=== PATIENT | male | born 1985 | race Caucasian/White ===

== ENCOUNTER 2016-12-15 22:46 | Inpatient (IN) | payer BC, OTHER ==
[~2016-12-15] VITALS: Ht 182.9 cm; Wt 110.9 kg
[2016-12-15 22:40] VITALS: O2SAT 99
[~2016-12-15 22:46] MED LIST: LACTATED RINGER'S 1000 ML INJ 1,000 ML IV ONE; PROPOFOL 200 MG/20 ML AMP IV ONE; Z.0.NO CURRENT MEDS
[2016-12-15] MEDS ORDERED: DIPHTH/TETANUS/ACEL PERTUSSIS (BOOSTER) 0.5 ML VIAL/PFS IM ONE (22:51)
[2016-12-15] MEDS ORDERED: ceFAZolin 2 GM PREMIX 50 ML ONE (22:51)
[2016-12-15 23:02] VITALS: O2SAT 99
[2016-12-15] MEDS ORDERED: IOHEXOL 350 MG/ML 10 ML VIAL (for RAD DIAG) IV ONE (23:10)
[2016-12-15] MEDS ORDERED: Post-op Orders (for Pharmacy) MISC XX ONE (23:15)
[2016-12-15] MEDS ORDERED: SODIUM CHLORIDE 0.9% FLUSH 10 ML FLUSH IV FLUSH PRN (23:15)
[2016-12-15] MEDS ORDERED: 3% SALINE INJ 500 ML IV ONE ×2 (23:15)
[2016-12-15] MEDS ORDERED: NALOXONE HCL 0.4 MG/ML AMP IV PRN (23:15)
[2016-12-15] MEDS ORDERED: PROPOFOL 1000 MG/100 ML INJ 100 ML IV SCH (23:15)
[2016-12-15] MEDS ORDERED: ONDANSETRON HCL 4 MG/2 ML VIAL IV PRN (23:15)
[2016-12-15 23:18] LABS: AUTOMATED NEUTROPHIL # 6.7 TH/MM3 (1.8-7.7); BASOPHIL # 0.1 TH/MM3 (0-0.2); BASOPHIL % 0.6 % (0.0-2.0); EOSINOPHIL # 0.2 TH/MM3 (0-0.4); EOSINOPHIL % 1.6 % (0.0-4.0); HEMATOCRIT 40.4 % (39.0-51.0); LYMPH % 45.7 % (9.0-44.0); LYMPHOCYTE # 6.5 TH/MM3 (1.0-4.8); MEAN CELL VOLUME 88.2 FL (80.0-100.0); MEAN CORPUSCULAR HEMOGLOBIN 28.6 PG (27.0-34.0); MEAN CORPUSCULAR HGB CONC 32.5 % (32.0-36.0); MONO % 5.2 % (0.0-8.0); NEUT % 46.9 % (16.0-70.0); PLATELET COUNT 309 TH/MM3 (150-450); RED BLOOD COUNT 4.58 MIL/MM3 (4.50-5.90); RED CELL DISTRIBUTION WIDTH 12.7 % (11.6-17.2); WHITE BLOOD COUNT 14.2 TH/MM3 (4.0-11.0)
[2016-12-15 23:22] LABS: HEMO FLAGS AUTO DIFF
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
[2016-12-15] MEDS ORDERED: SODIUM CHLORIDE 23.4% INJ 240 MEQ in SYRINGE/BAG 1 EA IV ONE (23:30)
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
[2016-12-15 23:33] LABS: APTT (PATIENT) 25.4 SEC (24.3-30.1); PROTHROMBIN TIME - PATIENT 10.9 SEC (9.8-11.6)
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
[2016-12-15] MEDS ORDERED: ETOMIDATE 20 MG/10 ML VIAL ONE (23:50)
[2016-12-16] VITALS (14 sets, daily range): BP systolic 126–161; BP diastolic 62–69; PULSE 98–124; RESP 22; TEMP 99.5–101.8; O2SAT 99–100
[2016-12-16] MEDS ORDERED: GELFOAM SIZE 100 OTHER ONE (00:02)
[2016-12-16] MEDS ORDERED: GENTAMICIN SULFATE 80 MG/2 ML VIAL IRRIGATION ONE (00:02)
[2016-12-16] MEDS ORDERED: LIDOCAINE 1%/EPINEPHrine 1:100,000 SOLN 30 ML VIAL INFIL ONE (00:02)
[2016-12-16] MEDS ORDERED: THROMBIN (TOPICAL) 5,000 UNIT VIAL ONE (00:02)
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
[2016-12-16 00:10] LABS: CORRECTED NUCLEATED RBC 1 /100 WBC (0-0); EOSINOPHILS 4 % (0-4); NEUTROPHIL # MANUAL DIFF 5.7 TH/MM3 (1.8-7.7); POLYS (SEG NEUTROPHILS) 40 % (16-70); WBC DIFF SAMPLE 100
[2016-12-16 00:11] LABS: SCAN/DIFF FINAL DIFF MANUAL
[2016-12-16 00:12] LABS: PLATELET ESTIMATE SMEAR NORMAL (NORMAL); PLATELET MORPHOLOGY NORMAL (NORMAL)
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
--- NOTE | 2016-12-16 01:54 | PD.OP ---
Operative Report Date of Surgery: December 16, 2016 Preoperative Diagnosis: (1) Traumatic brain injury (2) Acute subdural hematoma Traumatic brain injury Acute left hemisphere subdural hematoma Postoperative Diagnosis: (1) Traumatic brain injury (2) Acute subdural hematoma Traumatic brain injury Acute left hemisphere subdural hematoma Procedure: 1. Left frontotemporoparietal decompressive craniotomy, evacuation of acute subdural hematoma 2. Left frontal ventriculostomy catheter placement 3. Left frontal intracranial pressure monitor placement Anesthesia: Gen. endotracheal Surgeon: Rodney Castaneda Bicycle Rental Clerk(s): Nida Whitten Operation and Findings: Findings: Large acute left hemisphere subdural hematoma. Moderate cerebral edema Procedure in detail: The patient was brought into the operating room already intubated and general endotracheal anesthesia induced without difficulty. The Mane catheter, and sequential compression devices were in place. The lines were established per anesthesia. The patient was placed in semilateral position on the 3080 table with the head on the horseshoe headrest. All extremities were appropriately padded Appropriate timeout procedure was performed with all personnel present and in agreement The left side of the head was shaved with the clippers and sterilely prepped and draped 1% Xylocaine was used for local infiltration over the incision site which was made over the left frontotemporoparietal area in a curvilinear fashion and carried sharply down to the cranium through the temporalis muscle and fascia. The scalp and temporalis muscle flap were elevated in a single layer with the periosteal elevator and retracted over a laparotomy sponge with the large scalp hooks. The senior government program analyst was used to place a single bur hole in the posterior left frontoparietal region and the craniotome was used to incise the bone flap. The dura was moderately tense upon removal of the bone flap. The dura was opened in a cruciate fashion and the edges retracted with 4-0 Nurolon suture. The large underlying subdural hematoma was evacuated with gentle suction and irrigation until clear The bipolar forceps were used to control any bleeding at the operative site. There was still evidence of surrounding edema and the brain was bulging moderately beyond the edge dura at the the craniotomy site. It was elected to leave the bone flap out and the dura opened to allow for cerebral edema. In order to further decompress the brain, a left frontal ventriculostomy catheter was placed. The catheter was placed into the ventricle in a single pass using normal anatomic landmarks, starting approximately 1 cm in front of the coronal suture. The catheter was tunneled to the right frontal region and secured to the skin with nylon suture. The Oleg ICP monitor lead was then zeroed and placed through a small incision near the midline frontal region and then into the right frontal parenchyma. The lead was secured to the skin with nylon suture. A 7 mm flat fluted drain was left in place in the subdural space The drain was brought out through an incision in the posterior parietal region and secured to the skin with nylon suture The closure was performed with 2-0 Vicryl for the temporalis muscle fascia and galeal closure and octavia for the skin closure. A dressing of sterile Telfa, 4 x 4's, and a loose head stockinette was applied. The patient was taken to recovery room in stable condition All counts were correct at the end of the case. Estimated blood loss was 600 cc No specimen was sent to pathology Rodney Castaneda MD December 16, 2016 01:54
[2016-12-16] MEDS: NS + KCL 20 MEQ INJ 1,000 ML IV SCH ×3 (02:15→20:45)
[2016-12-16 02:36] LABS: BLOOD GAS BASE EXCESS -6.8 mmol/L (-2-2); BLOOD GAS CARBOXYHEMOGLOBIN 1.7 % (0-4); BLOOD GAS HCO3 17 mmol/L (22-26); BLOOD GAS METHEMOGLOBIN 1.3 % (0-2); BLOOD GAS O2 HGB SATURATION 97 % (90-100); BLOOD GAS PCO2 28 mmHg (38-42); BLOOD GAS PO2 285 mmHg (61-120); BLOOD GAS TOTAL HGB 9.8 G/DL (12.0-16.0); CRITICAL VALUE NO; FIO2 100 %; OXYGEN DEVICE VENTILATOR; TEMP CORR TO 98.6; VENT SETTINGS PER ANESTHESIA
[2016-12-16 02:37] LABS: DRAW SITE ART LINE; STAT YES
[2016-12-16] MEDS ORDERED: ceFAZolin INJ 1,000 MG VIAL IV ONE (02:40)
[2016-12-16 02:42] LABS: AUTOMATED NEUTROPHIL # 10.9 TH/MM3 (1.8-7.7); BASOPHIL % 0.2 % (0.0-2.0); EOSINOPHIL % 0.2 % (0.0-4.0); HEMATOCRIT 27.7 % (39.0-51.0); HEMO FLAGS DIFF FINAL; LYMPH % 20.4 % (9.0-44.0); LYMPHOCYTE # 3.2 TH/MM3 (1.0-4.8); MEAN CELL VOLUME 87.8 FL (80.0-100.0); MEAN CORPUSCULAR HEMOGLOBIN 29.8 PG (27.0-34.0); MONO % 9.2 % (0.0-8.0); PLATELET COUNT 228 TH/MM3 (150-450); RED BLOOD COUNT 3.16 MIL/MM3 (4.50-5.90); WHITE BLOOD COUNT 15.6 TH/MM3 (4.0-11.0)
[2016-12-16 02:59] LABS: INTERNATIONAL NORMALIZED RATIO 1.1 RATIO; PROTHROMBIN TIME - PATIENT 12.7 SEC (9.8-11.6)
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
[2016-12-16] MEDS ORDERED: NOREPINEPHRINE-DEXTROSE DRIP 250 ML IV ONE (06:10)
[2016-12-16] MEDS ORDERED: fentaNYL CITRATE 250 MCG/5 ML AMP ONE (06:17)
--- NOTE | 2016-12-16 06:27 | RADRPT ---
EXAM DATE/TIME: 12/16/2016 04:02 [facility] COMPARISON: No previous studies available for comparison. INDICATIONS : ORIF right forearm. MEDICAL HISTORY : None. SURGICAL HISTORY : None. ENCOUNTER: Subsequent ACUITY: 1 day PAIN SCORE: Non-responsive. LOCATION: Right forearm FINDINGS: Postoperative plate and screw fixation radius and ulna. Near-anatomic alignment. No complications jayy ntified. CONCLUSION: 1. Postoperative plate and screw fixation of the left radius and ulna. Jose Eduardo Tong MD on December 16, 2016 at 6:25 Board Certified Radiologist. This report was verified electronically.
--- NOTE | 2016-12-16 06:30 | RADRPT ---
EXAM DATE/TIME: 12/16/2016 04:02 [facility] COMPARISON: No previous studies available for comparison. INDICATIONS : Right hand pinning. MEDICAL HISTORY : None. SURGICAL HISTORY : None. ENCOUNTER: Initial ACUITY: 1 day PAIN SCORE: Non-responsive. LOCATION: Right hand FINDINGS: Two view examination of the right hand demonstrates wire fixation across fractures of the fourth and fifth metacarpals. No complications identified. CONCLUSION: 1. Wire fixation of fractures of the fourth and fifth metacarpals. Jose Eduardo Tong MD on December 16, 2016 at 6:25 Board Certified Radiologist. This report was verified electronically.
[2016-12-16 06:41] LABS: AUTOMATED NEUTROPHIL # 10.6 TH/MM3 (1.8-7.7); BASOPHIL % 0.1 % (0.0-2.0); HEMATOCRIT 24.5 % (39.0-51.0); HEMO FLAGS DIFF FINAL; LYMPH % 6.4 % (9.0-44.0); LYMPHOCYTE # 0.8 TH/MM3 (1.0-4.8); MEAN CELL VOLUME 88.1 FL (80.0-100.0); MEAN CORPUSCULAR HEMOGLOBIN 29.3 PG (27.0-34.0); MEAN CORPUSCULAR HGB CONC 33.2 % (32.0-36.0); MONO % 8.5 % (0.0-8.0); PLATELET COUNT 203 TH/MM3 (150-450); RED BLOOD COUNT 2.78 MIL/MM3 (4.50-5.90); RED CELL DISTRIBUTION WIDTH 13.2 % (11.6-17.2); WHITE BLOOD COUNT 12.5 TH/MM3 (4.0-11.0)
[2016-12-16] MEDS ORDERED: EPINEPHrine HCL (1:10,000) 1 MG/10 ML SYRINGE ONE (06:41)
[2016-12-16 06:55] LABS: BICARBONATE 23.6 MEQ/L (21.0-32.0); POTASSIUM 4.1 MEQ/L (3.5-5.1)
[2016-12-16] MEDS ORDERED: SODIUM CHLORIDE 23.4% INJ 240 MEQ in SYRINGE/BAG 1 EA IV ONE (07:00)
[2016-12-16 07:07] LABS: BLOOD GAS BASE EXCESS -8.8 mmol/L (-2-2); BLOOD GAS CARBOXYHEMOGLOBIN 0.7 % (0-4); BLOOD GAS HCO3 16 mmol/L (22-26); BLOOD GAS METHEMOGLOBIN 1.2 % (0-2); BLOOD GAS O2 HGB SATURATION 98 % (90-100); BLOOD GAS OXYGEN CONTENT 9.6 Vol % (12.0-20.0); BLOOD GAS PCO2 32 mmHg (38-42); BLOOD GAS PO2 420 mmHg (61-120); BLOOD GAS TOTAL HGB 6.1 G/DL (12.0-16.0); TEMP CORR TO 98.6
[2016-12-16 07:08] LABS: CRITICAL VALUE YES; OXYGEN DEVICE VENT
[2016-12-16 07:09] LABS: DRAW SITE ALINE; FIO2 100 %; STAT NO; ULNAR PULSE PRESENT; VENT SETTINGS SEE COMMENTS
[2016-12-16] MEDS ORDERED: NOREPINEPHRINE INJ 4 MG in SODIUM CHLOR 0.9% 250 ML INJ 250 ML IV SCH (07:30)
[2016-12-16] MEDS ORDERED: NOREPINEPHRINE 4 MG/4 ML AMP ONE (07:45)
[2016-12-16 07:49] LABS: INTERNATIONAL NORMALIZED RATIO 1.1 RATIO; PROTHROMBIN TIME - PATIENT 12.6 SEC (9.8-11.6)
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
--- NOTE | 2016-12-16 07:55 | PD.PROCEDR ---
Procedure Note Procedure DX: Traumatic Brain Injury OP: Insertion Central Venous Line (39048) Procedure: Left chest prepped and draped. Left subclavian vein cannulated and wire easily advanced. Catheter passed over wire to 18 cm. Lumens aspirated and flushed. Dressing applied. CXR ordered, will review. Leonardo Hebert MD December 16, 2016 07:55
[2016-12-16] MEDS ORDERED: PHENYLEPHRINE INJ 160 MG in SODIUM CHLORID 0.9% 500 ML INJ 484 ML IV SCH (08:00)
[2016-12-16] MEDS ORDERED: SODIUM BICARBONATE 8.4% INJ 50 MEQ/50 ML SYR IV PUSH ONE (08:00)
[2016-12-16] MEDS ORDERED: TERBUTALINE INJ 1 MG/ML AMP SQ PRN (08:00)
[2016-12-16] MEDS ORDERED: SODIUM BICARBONATE 8.4% INJ 50 ML ONE (08:20)
--- NOTE | 2016-12-16 08:22 | RADRPT ---
EXAM DATE/TIME: 12/16/2016 07:52 [facility] COMPARISON: CHEST SINGLE AP, December 15, 2016, 22:39. INDICATIONS : Evaluate intubation and central line placement MEDICAL HISTORY : None. SURGICAL HISTORY : None. ENCOUNTER: Subsequent ACUITY: 2 days PAIN SCORE: Non-responsive. LOCATION: Bilateral chest FINDINGS: 2 AP views of the chest demonstrate a normal size cardiac silhouette. Endotracheal tube is present wi th distal tip at the clavicular head level measuring approximately 5.1 cm from the lauro. Left subcl ilene central line has been placed with distal tip in the SVC. No pneumothorax is visualized. No airs pace consolidation or pleural effusion is visualized. Nasogastric tube is looped in the stomach. CONCLUSION: 1. Left subclavian central line distal tip in the SVC. No pneumothorax is visualized. 2. Endotracheal tube tip measures 5.1 cm from the lauro and nasogastric tube is looped in the stomac h. Иван Medrano MD on December 16, 2016 at 8:19 Board Certified Radiologist. This report was verified electronically.
[2016-12-16] MEDS: SODIUM CHLORIDE 23.4% INJ 240 MEQ in SYRINGE/BAG 1 EA IV PRN (08:25)
[2016-12-16] MEDS: 3% SALINE INJ 500 ML IV SCH ×2 (08:26→20:45)
[2016-12-16] MEDS: SODIUM CHLORIDE 0.9% FLUSH 10 ML FLUSH IV FLUSH SCH ×2 (09:00→20:29)
[2016-12-16] MEDS: NOREPINEPHRINE INJ 16 MG in SODIUM CHLOR 0.9% 250 ML INJ 234 ML IV SCH ×2 (09:58→18:39)
[2016-12-16] MEDS: CHLORHEXIDINE 0.12% (ORAL KIT) 15 ML CUP MT SCH ×2 (09:58→20:29)
[2016-12-16] MEDS: PROPOFOL 1000 MG/100 ML INJ 100 ML IV SCH ×4 (09:58→23:30)
[2016-12-16] MEDS: levETIRAcetam INJ 500 MG in SODIUM CHLORIDE 0.9% INJ 100 ML IV SCH ×2 (09:59→20:28)
[2016-12-16] MEDS: DOCUSATE SODIUM 100 MG CAP PO SCH ×2 (09:59→20:29)
[2016-12-16 10:50] LABS: MAGNESIUM 1.5 MG/DL (1.5-2.5)
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
[2016-12-16 12:39] LABS: HEMATOCRIT 29.5 % (39.0-51.0); REVIEW FLAG FINAL
--- NOTE | 2016-12-16 15:48 | OTSOAPIP ---
TIME SESSION COMPLETED: INTERDISCIPLINARY COMMUNICATION: NURSING REQUESTED TO HOLD TREATMENT TODAY PLAN: WILL SEE PATIENT NEXT TREATMENT DAY Therapist: AZAM PARKS OTR/Zachariah Signature on file
[2016-12-16] MEDS: MAGNESIUM SULFAT 1 GM PREMIX 100 ML x2 bags IV SCH (16:40)
[2016-12-16] MEDS ORDERED: ACETAMINOPHEN 1000 MG/100 ML VIAL IV ONE (17:00)
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
--- NOTE | 2016-12-16 17:31 | PD.PROCEDR ---
Procedure Note Procedure DX: Traumatic Brain Injury OP: Insertion Left radial Arterial Line (50092) Procedure: Mahamed test normal left hand. Left wrist supinated and prepped and draped. Left radial artery cannulated and wire easily advanced. 20 gauge cannula passed over wire to 5 cm. Good waveform observed. Dressing applied. Normal circulation to hand after procedure. Leonardo Hebert MD December 16, 2016 17:31
[2016-12-16] MEDS: ACETAMINOPHEN 650 MG/20.3 ML UDC PO PRN (18:47)
[2016-12-16] MEDS: fentaNYL DRIP 250 ML IV SCH (19:58)
[2016-12-16] MEDS: MAGNESIUM HYDROXIDE SUSP 30 ML CUP PO SCH (20:29)
[2016-12-16 22:34] LABS: MAGNESIUM 2.3 MG/DL (1.5-2.5)
[2016-12-16] MEDS: PANTOPRAZOLE SODIUM 40 MG VIAL IV SCH ×2 (23:30)
[2016-12-17] VITALS (19 sets, daily range): BP systolic 125–157; BP diastolic 64–69; PULSE 75–90; RESP 18; TEMP 98.6–100.3; O2SAT 99–100
[2016-12-17] MEDS: PROPOFOL 1000 MG/100 ML INJ 100 ML IV SCH ×6 (03:17→23:31)
[2016-12-17] MEDS ORDERED: EPINEPHrine HCL (1:10,000) 1 MG/10 ML SYRINGE ONE (03:47)
[2016-12-17] MEDS: MIDAZOLAM HCL 2 MG/2 ML VIAL IV PUSH PRN (03:50)
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
[2016-12-17 05:30] LABS: AUTOMATED NEUTROPHIL # 6.7 TH/MM3 (1.8-7.7); BASOPHIL % 0.1 % (0.0-2.0); HEMATOCRIT 22.3 % (39.0-51.0); HEMO FLAGS DIFF FINAL; LYMPH % 11.2 % (9.0-44.0); MEAN CELL VOLUME 86.4 FL (80.0-100.0); MEAN CORPUSCULAR HGB CONC 34.7 % (32.0-36.0); MONO % 12.2 % (0.0-8.0); NEUT % 76.5 % (16.0-70.0); PLATELET COUNT 144 TH/MM3 (150-450); RED BLOOD COUNT 2.59 MIL/MM3 (4.50-5.90); RED CELL DISTRIBUTION WIDTH 13.6 % (11.6-17.2); WHITE BLOOD COUNT 8.8 TH/MM3 (4.0-11.0)
[2016-12-17 05:43] LABS: BLOOD GAS BASE EXCESS -0.4 mmol/L (-2-2); BLOOD GAS CARBOXYHEMOGLOBIN 0.9 % (0-4); BLOOD GAS HCO3 23 mmol/L (22-26); BLOOD GAS O2 HGB SATURATION 98 % (90-100); BLOOD GAS OXYGEN CONTENT 10.3 Vol % (12.0-20.0); BLOOD GAS PO2 169 mmHg (61-120); BLOOD GAS TOTAL HGB 7.2 G/DL (12.0-16.0); CRITICAL VALUE NO; OXYGEN DEVICE VENTILATOR; TEMP CORR TO 98.6
[2016-12-17 05:44] LABS: BLOOD GAS PCO2 31 mmHg (38-42); DRAW SITE ART LINE; FIO2 40 %; STAT NO; VENT SETTINGS PRVC/AC
[2016-12-17 05:52] LABS: ALKALINE PHOSPHATASE 39 U/L (45-117); ALT (GPT) 106 U/L (12-78); ANION GAP 10 MEQ/L (5-15); AST (GOT) 143 U/L (15-37); BICARBONATE 27.2 MEQ/L (21.0-32.0); BLOOD UREA NITROGEN 15 MG/DL (7-18); CHLORIDE 116 MEQ/L (98-107); GLOMERULAR FILTRATION RATE 103 ML/MIN (>89); MAGNESIUM 2.5 MG/DL (1.5-2.5); POTASSIUM 3.8 MEQ/L (3.5-5.1); SODIUM (NA) 153 MEQ/L (136-145); TOTAL BILIRUBIN ADULT 0.3 MG/DL (0.2-1.0)
--- NOTE | 2016-12-17 06:36 | RADRPT ---
EXAM DATE/TIME: 12/17/2016 04:44 [facility] COMPARISON: CHEST SINGLE AP, December 16, 2016, 7:52. INDICATIONS : Respiratory distress. MEDICAL HISTORY : None. SURGICAL HISTORY : Ventriculostomy. ENCOUNTER: Initial ACUITY: 2 days PAIN SCORE: 1/10 LOCATION: Bilateral chest FINDINGS: Endotracheal tube, nasogastric tube and left subclavian central line are present good position. Lungs are symmetrically aerated and grossly clear. Cardiac satisfactory. CONCLUSION: Satisfactory chest appearance Иван Nair MD on December 17, 2016 at 6:34 Board Certified Radiologist. This report was verified electronically.
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
[2016-12-17] MEDS: SODIUM CHLORIDE 0.9% FLUSH 10 ML FLUSH IV FLUSH SCH ×2 (08:07→20:48)
[2016-12-17] MEDS: CHLORHEXIDINE 0.12% (ORAL KIT) 15 ML CUP MT SCH ×2 (09:03→20:48)
[2016-12-17] MEDS: DOCUSATE SODIUM 100 MG CAP PO SCH ×2 (09:03→20:48)
[2016-12-17] MEDS: levETIRAcetam INJ 500 MG in SODIUM CHLORIDE 0.9% INJ 100 ML IV SCH ×2 (09:03→20:48)
[2016-12-17] MEDS ORDERED: POTASSIUM CHLORIDE 25 MEQ EFFERVESCENT TAB PO PRN (09:30)
[2016-12-17] MEDS ORDERED: POTASSIUM CHLOR 20 MEQ PREMIX 100 ML IV PRN ×2 (09:30)
[2016-12-17] MEDS ORDERED: MAGNESIUM SULFATE INJ 4 GM in SODIUM CHLORIDE 0.9% INJ 92 ML IV PRN (09:30)
[2016-12-17] MEDS ORDERED: POTASSIUM PHOSPHATE MONOBASIC 500 MG TAB PO/TUBE PRN (09:30)
[2016-12-17] MEDS ORDERED: MAGNESIUM SULFATE INJ 2 GM in SODIUM CHLORIDE 0.9% INJ 96 ML IV PRN (09:30)
[2016-12-17] MEDS ORDERED: MAGNESIUM OXIDE 400 MG TAB PO PRN (09:30)
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
[2016-12-17] MEDS: SODIUM PHOSPHATE INJ 30 MMOL in SODIUM CHLOR 0.9% 250 ML INJ 240 ML IV PRN ×2 (10:27→17:51)
[2016-12-17 11:00] LABS: MAGNESIUM 2.5 MG/DL (1.5-2.5)
[2016-12-17 11:03] LABS: BLOOD GAS BASE EXCESS 1.2 mmol/L (-2-2); BLOOD GAS CARBOXYHEMOGLOBIN 0.8 % (0-4); BLOOD GAS HCO3 25 mmol/L (22-26); BLOOD GAS O2 HGB SATURATION 98 % (90-100); BLOOD GAS OXYGEN CONTENT 12.1 Vol % (12.0-20.0); BLOOD GAS PCO2 34 mmHg (38-42); BLOOD GAS PO2 511 mmHg (61-120); BLOOD GAS TOTAL HGB 7.8 G/DL (12.0-16.0); CRITICAL VALUE NO; TEMP CORR TO 98.6
[2016-12-17 11:04] LABS: DRAW SITE CL; FIO2 100 %; OXYGEN DEVICE VENTILATOR; VENT SETTINGS PRVC/VT800/R18/P18
[2016-12-17 11:05] LABS: STAT NO
--- NOTE | 2016-12-17 11:12 | PD.ORT.PN ---
Subjective Post Op Day #: 2 Subjective Remarks The patient is intubated and sedated. Family is at the bedside. There have been no reported problems referable to the right upper extremity or hip Objective Vitals Vital Signs Date Time Temp Pulse Resp B/P Pulse Ox O2 Delivery O2 Flow Rate FiO2 12/17/16 10:00 85 12/17/16 09:38 100 40 12/17/16 09:32 100 40 12/17/16 08:00 99.1 83 18 125/68 100 12/17/16 08:00 40 12/17/16 08:00 83 12/17/16 06:00 75 12/17/16 04:10 100 100 12/17/16 04:00 40 12/17/16 04:00 82 12/17/16 04:00 98.6 82 18 157/64 100 12/17/16 03:55 100 40 12/17/16 02:00 85 12/17/16 01:10 100 40 12/17/16 01:10 100 40 12/17/16 00:00 99.5 90 18 153/68 100 12/17/16 00:00 90 12/17/16 00:00 40 12/16/16 23:25 100 40 12/16/16 22:00 98 12/16/16 20:30 99 40 12/16/16 20:00 118 12/16/16 20:00 101.8 118 22 142/64 99 12/16/16 20:00 40 12/16/16 18:00 106 12/16/16 17:45 100 40 12/16/16 16:00 101.0 124 22 126/69 100 12/16/16 16:00 124 12/16/16 16:00 40 12/16/16 14:00 119 12/16/16 13:05 100 40 12/16/16 12:00 111 12/16/16 12:00 100.4 111 22 134/62 100 12/16/16 12:00 40 I/O 12/16/16 12/16/16 12/16/16 12/17/16 12/17/16 12/17/16 07:00 15:00 23:00 07:00 15:00 23:00 Intake Total 1343 ml 829 ml 1321 ml Output Total 1940 ml 910 ml 514 ml Balance -597 ml -81 ml 807 ml Intake IV Total 1093 ml 829 ml 1321 ml Packed Cells 250 ml Output Urine Total 1750 ml 725 ml 400 ml Gastric Drainage Total 50 ml 25 ml 25 ml Drainage Total 140 ml 160 ml 89 ml Result Diagram: 12/17/16 0519 12/17/16 1020 Imaging Last [address] 12/17/16 0600 Signed Impressions: Service Date/Time: Saturday, December 17, 2016 04:31 - CONCLUSION: Developing large multifocal parenchymal brain hemorrhages. Иван Nair MD Chest X-Ray 12/17/16 06 Signed Impressions: Service Date/Time: Saturday, December 17, 2016 04:44 - CONCLUSION: Satisfactory chest appearance Иван Nair MD Procedures Irrigation debridement with ORIF right radius and ulna and fourth and fifth metacarpal fractures 12/16/16 Objective Remarks The right upper extremity splint is dry and intact. There is swelling of the fingers and ecchymosis with good capillary refill. His lower extremity leg lengths are equal. Assessment & Plan Ortho Post Op Day #: 1 Problem List: (1) Acute subdural hematoma (2) Open fracture of radius and ulna (3) Open displaced fracture of neck of right fifth metacarpal bone (4) Displaced fracture of fourth metacarpal bone of right hand (5) Fracture dislocation of right hip joint (6) Fracture of head of right femur Assessment and Plan The findings were discussed with family. The dressing will be changed today. He will be placed into an abduction pillow. I will discuss his hip injury with Dr. Dao to determine whether any further evaluation is required. The family understands the nature of the problem and plan of treatment and agrees. Salvador Amaro MD December 17, 2016 11:12
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
[2016-12-17] MEDS: 3% SALINE INJ 500 ML IV SCH (13:31)
[2016-12-17] MEDS: MAGNESIUM HYDROXIDE SUSP 30 ML CUP PO SCH (20:48)
[2016-12-17] MEDS: ACETAMINOPHEN 650 MG/20.3 ML UDC PO PRN (22:31)
[2016-12-17 23:24] LABS: MAGNESIUM 2.6 MG/DL (1.5-2.5)
[2016-12-18] VITALS (21 sets, daily range): BP systolic 137–161; BP diastolic 65–70; PULSE 40–75; RESP 20–21; TEMP 100–100.8; O2SAT 100
[2016-12-18] MEDS: PANTOPRAZOLE SODIUM 40 MG VIAL IV SCH ×2 (00:43→23:40)
[2016-12-18] MEDS: fentaNYL DRIP 250 ML IV SCH ×2 (02:02→21:21)
[2016-12-18 04:40] LABS: AUTOMATED NEUTROPHIL # 6.2 TH/MM3 (1.8-7.7); BASOPHIL % 0.2 % (0.0-2.0); EOSINOPHIL # 0.1 TH/MM3 (0-0.4); EOSINOPHIL % 0.7 % (0.0-4.0); LYMPH % 11.7 % (9.0-44.0); LYMPHOCYTE # 0.9 TH/MM3 (1.0-4.8); MEAN CELL VOLUME 88.1 FL (80.0-100.0); MEAN CORPUSCULAR HEMOGLOBIN 29.5 PG (27.0-34.0); MEAN CORPUSCULAR HGB CONC 33.5 % (32.0-36.0); MONO % 10.3 % (0.0-8.0); NEUT % 77.1 % (16.0-70.0); PLATELET COUNT 121 TH/MM3 (150-450); RED BLOOD COUNT 2.18 MIL/MM3 (4.50-5.90); RED CELL DISTRIBUTION WIDTH 13.6 % (11.6-17.2); WHITE BLOOD COUNT 8.1 TH/MM3 (4.0-11.0)
[2016-12-18 04:46] LABS: HEMO FLAGS DIFF FINAL
[2016-12-18 04:47] LABS: HEMATOCRIT 19.2 % (39.0-51.0)
[2016-12-18 04:53] LABS: ALKALINE PHOSPHATASE 45 U/L (45-117); ALT (GPT) 80 U/L (12-78); ANION GAP 4 MEQ/L (5-15); AST (GOT) 98 U/L (15-37); BICARBONATE 28.3 MEQ/L (21.0-32.0); BLOOD UREA NITROGEN 17 MG/DL (7-18); CHLORIDE 123 MEQ/L (98-107); GLOMERULAR FILTRATION RATE 112 ML/MIN (>89); MAGNESIUM 2.7 MG/DL (1.5-2.5); POTASSIUM 3.4 MEQ/L (3.5-5.1); SODIUM (NA) 155 MEQ/L (136-145); TOTAL BILIRUBIN ADULT 0.2 MG/DL (0.2-1.0)
--- NOTE | 2016-12-18 05:16 | RADRPT ---
EXAM DATE/TIME: 12/18/2016 04:41 [place] COMPARISON: CHEST SINGLE AP, December 17, 2016, 4:44. INDICATIONS : Short of breath. MEDICAL HISTORY : None. SURGICAL HISTORY : Ventriculostomy. ENCOUNTER: Subsequent ACUITY: 4 - 6 days PAIN SCORE: 0/10 LOCATION: Bilateral chest FINDINGS: Endotracheal tube, nasogastric tube and left subclavian central line are stable. Lungs are grossly st able and clear. Cardiomediastinal contours are stable and satisfactory. CONCLUSION: Stable chest appearance Иван Nair MD on December 18, 2016 at 5:13 Board Certified Radiologist. This report was verified electronically.
[2016-12-18 05:31] LABS: BLOOD GAS CARBOXYHEMOGLOBIN 0.9 % (0-4); BLOOD GAS HCO3 26 mmol/L (22-26); BLOOD GAS O2 HGB SATURATION 98 % (90-100); BLOOD GAS OXYGEN CONTENT 11.8 Vol % (12.0-20.0); BLOOD GAS PCO2 33 mmHg (38-42); BLOOD GAS PO2 189 mmHg (61-120); BLOOD GAS TOTAL HGB 8.3 G/DL (12.0-16.0); TEMP CORR TO 98.6
[2016-12-18 05:43] LABS: CRITICAL VALUE YES; OXYGEN DEVICE VENTILATOR
[2016-12-18 05:44] LABS: VENT SETTINGS PRVC
[2016-12-18 05:45] LABS: DRAW SITE ART LINE; FIO2 40 %; STAT NO
[2016-12-18] MEDS: PROPOFOL 1000 MG/100 ML INJ 100 ML IV SCH ×4 (05:58→21:21)
[2016-12-18] MEDS: POTASSIUM PHOSPHATE MONOBASIC 500 MG TAB PO PRN ×2 (05:59→09:12)
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
[2016-12-18] MEDS: SODIUM CHLORIDE 0.9% FLUSH 10 ML FLUSH IV FLUSH SCH ×2 (08:07→20:38)
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
[2016-12-18] MEDS: DOCUSATE SODIUM 100 MG CAP PO SCH ×2 (09:12→20:38)
[2016-12-18] MEDS: CHLORHEXIDINE 0.12% (ORAL KIT) 15 ML CUP MT SCH ×2 (09:13→20:38)
[2016-12-18] MEDS: levETIRAcetam INJ 500 MG in SODIUM CHLORIDE 0.9% INJ 100 ML IV SCH ×2 (09:13→20:38)
[2016-12-18 11:06] LABS: MAGNESIUM 2.6 MG/DL (1.5-2.5)
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
[2016-12-18] MEDS: SODIUM PHOSPHATE INJ 30 MMOL in SODIUM CHLOR 0.9% 250 ML INJ 240 ML IV PRN (12:17)
[2016-12-18 12:23] LABS: HEMATOCRIT 24.4 % (39.0-51.0); REVIEW FLAG FINAL
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
[2016-12-18] MEDS: ACETAMINOPHEN 650 MG/20.3 ML UDC PO PRN ×2 (12:49→23:40)
[2016-12-18] MEDS: POTASSIUM CHLOR 40 MEQ PREMIX 100 ML IV PRN ×2 (13:55→13:56)
--- NOTE | 2016-12-18 16:19 | OTSOAPIP ---
TIME SESSION COMPLETED: AM TREATMENT TIME: 0 MINS. CHART REVIEWED. ATTEMPTED TO SEE FOR OT EVALUATION, HOWEVER PT REMAINS NOT STABLE. WILL FOLLOW NEXT DAY. Therapist: GABRIEL NDIAYE OT/Zachariah Signature on file
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
[2016-12-18] MEDS: hydrALAZINE HCL 20 MG/ML VIAL IV PRN (20:37)
[2016-12-18] MEDS: MAGNESIUM HYDROXIDE SUSP 30 ML CUP PO SCH (20:38)
[2016-12-18] MEDS: MIDAZOLAM HCL 2 MG/2 ML VIAL IV PUSH PRN ×2 (21:08→23:40)
[2016-12-18 23:13] LABS: MAGNESIUM 2.7 MG/DL (1.5-2.5)
[2016-12-19] VITALS (19 sets, daily range): BP systolic 124–168; BP diastolic 59–71; PULSE 55–72; RESP 20–23; TEMP 97–101.8; O2SAT 95–100
[2016-12-19] MEDS: POTASSIUM PHOSPHATE MONOBASIC 500 MG TAB PO PRN (02:32)
[2016-12-19] MEDS: SODIUM PHOSPHATE INJ 30 MMOL in SODIUM CHLOR 0.9% 250 ML INJ 240 ML IV PRN (03:12)
[2016-12-19 05:22] LABS: AUTOMATED NEUTROPHIL # 8.5 TH/MM3 (1.8-7.7); BASOPHIL % 0.2 % (0.0-2.0); EOSINOPHIL # 0.1 TH/MM3 (0-0.4); EOSINOPHIL % 1.4 % (0.0-4.0); HEMATOCRIT 24.9 % (39.0-51.0); HEMO FLAGS DIFF FINAL; LYMPHOCYTE # 0.8 TH/MM3 (1.0-4.8); MEAN CELL VOLUME 87.8 FL (80.0-100.0); MEAN CORPUSCULAR HEMOGLOBIN 29.7 PG (27.0-34.0); MEAN CORPUSCULAR HGB CONC 33.8 % (32.0-36.0); MONO % 7.1 % (0.0-8.0); NEUT % 83.3 % (16.0-70.0); PLATELET COUNT 153 TH/MM3 (150-450); RED BLOOD COUNT 2.83 MIL/MM3 (4.50-5.90); RED CELL DISTRIBUTION WIDTH 14.3 % (11.6-17.2); WHITE BLOOD COUNT 10.2 TH/MM3 (4.0-11.0)
[2016-12-19 05:44] LABS: ALKALINE PHOSPHATASE 53 U/L (45-117); ALT (GPT) 68 U/L (12-78); ANION GAP 9 MEQ/L (5-15); AST (GOT) 84 U/L (15-37); BICARBONATE 22.8 MEQ/L (21.0-32.0); BLOOD UREA NITROGEN 15 MG/DL (7-18); CHLORIDE 126 MEQ/L (98-107); GLOMERULAR FILTRATION RATE 144 ML/MIN (>89); MAGNESIUM 2.7 MG/DL (1.5-2.5); POTASSIUM 3.5 MEQ/L (3.5-5.1); TOTAL BILIRUBIN ADULT 0.3 MG/DL (0.2-1.0)
[2016-12-19 05:52] LABS: SODIUM (NA) 158 MEQ/L (136-145)
[2016-12-19 07:02] LABS: BLOOD GAS BASE EXCESS -3.6 mmol/L (-2-2); BLOOD GAS CARBOXYHEMOGLOBIN 1.1 % (0-4); BLOOD GAS HCO3 21 mmol/L (22-26); BLOOD GAS O2 HGB SATURATION 96 % (90-100); BLOOD GAS OXYGEN CONTENT 15.5 Vol % (12.0-20.0); BLOOD GAS PCO2 34 mmHg (38-42); BLOOD GAS PO2 102 mmHg (61-120); BLOOD GAS TOTAL HGB 11.4 G/DL (12.0-16.0); CRITICAL VALUE NO; OXYGEN DEVICE VENTILATOR; TEMP CORR TO 98.6
[2016-12-19 07:03] LABS: DRAW SITE ART LINE; FIO2 30 %; STAT NO; VENT SETTINGS PRVC
--- NOTE | 2016-12-19 07:22 | PD.ORT.PN ---
Subjective Subjective Remarks s/p right femoral head fx and right acetabulum fx s/p ORIF right BBFA intubated/sedated. patient status declining Objective Vitals Vital Signs Date Time Temp Pulse Resp B/P Pulse Ox O2 Delivery O2 Flow Rate FiO2 12/19/16 06:00 70 12/19/16 05:00 100 30 12/19/16 04:00 58 12/19/16 04:00 30 12/19/16 04:00 97.0 58 20 137/66 100 12/19/16 02:00 56 12/19/16 00:45 100 30 12/19/16 00:00 101.8 72 22 168/71 100 12/19/16 00:00 30 12/19/16 00:00 72 12/18/16 22:00 60 12/18/16 21:36 100 30 12/18/16 21:36 100 30 12/18/16 20:00 43 12/18/16 20:00 100.4 43 20 161/70 100 12/18/16 20:00 30 12/18/16 18:00 40 12/18/16 16:00 100.0 40 20 150/69 100 12/18/16 16:00 30 12/18/16 16:00 40 12/18/16 15:36 100 30 12/18/16 14:00 44 12/18/16 12:00 30 12/18/16 12:00 100.6 49 20 146/70 100 12/18/16 12:00 49 12/18/16 11:34 100 30 12/18/16 10:00 59 12/18/16 09:34 100 40 12/18/16 09:34 40 12/18/16 08:00 100.2 64 20 143/68 100 12/18/16 08:00 30 12/18/16 08:00 64 I/O 12/18/16 12/18/16 12/18/16 12/19/16 12/19/16 12/19/16 07:00 15:00 23:00 07:00 15:00 23:00 Intake Total 542 ml 1088 ml 160 ml 453 ml Output Total 294 ml 625 ml 477 ml 522 ml Balance 248 ml 463 ml -317 ml -69 ml Intake IV Total 542 ml 588 ml 160 ml 453 ml Packed Cells 500 ml Output Urine Total 250 ml 575 ml 425 ml 475 ml Gastric Drainage Total 0 ml 0 ml 0 ml Tube Feeding Residual Discard 0 ml Drainage Total 44 ml 50 ml 52 ml 47 ml Result Diagram: 12/19/16 0500 12/19/16 0500 Imaging Last [address] 12/17/16599 Signed Impressions: Service Date/Time: Saturday, December 17, 2016 04:31 - CONCLUSION: Developing large multifocal parenchymal brain hemorrhages. Иван Nair MD Chest X-Ray 12/17/16599 Signed Impressions: Service Date/Time: Saturday, December 17, 2016 04:44 - CONCLUSION: Satisfactory chest appearance Иван Nair MD Procedures Irrigation debridement with ORIF right radius and ulna and fourth and fifth metacarpal fractures 12/16/16 Objective Remarks Angel is a 31-year-old male who appears well-developed well-nourished. He is intubated and sedated. Examination of right upper extremity reveals splint is dry and intact. There is swelling of the fingers and ecchymosis with good capillary refill. Motor and sensory exams are not possible Examination of left arm reveals no obvious pain or deformity with shoulder, elbow, or wrist motion. He has good cap refill in his fingers. Skin is intact except for some superficial abrasions. Examination of left lower extremity reveals no obvious pain or deformity with hip, knee, or ankle motion. Skin is intact. Dorsalis pedis pulses palpable. Diminished exam of the knee is negative. Examination of right lower extremity reveals no obvious pain or deformity with gentle hip motion. There is a large knee effusion. He has abrasions over his knee. Ligamentous exam of the knee is unremarkable. Calf and thigh compartments are soft. Dorsalis pedis pulses palpable. His lower extremity leg lengths appear equal. Assessment & Plan Problem List: (1) Acute subdural hematoma (2) Open fracture of radius and ulna (3) Open displaced fracture of neck of right fifth metacarpal bone (4) Displaced fracture of fourth metacarpal bone of right hand (5) Fracture dislocation of right hip joint (6) Fracture of head of right femur Assessment and Plan 1) Right BBFA Fx s/p ORIF by Dr Amaro 2) Right Femoral Head Fx with Posterior Wall Acetabulum fx -patient status declining and still not a surgical candidate. will continue current plan of care unless and changes to status Alexis Devi December 19, 2016 07:22
[2016-12-19] MEDS: PROPOFOL 1000 MG/100 ML INJ 100 ML IV SCH ×5 (07:48→22:35)
[2016-12-19] MEDS: CHLORHEXIDINE 0.12% (ORAL KIT) 15 ML CUP MT SCH ×2 (07:48→20:28)
[2016-12-19] MEDS: SODIUM CHLORIDE 0.9% FLUSH 10 ML FLUSH IV FLUSH SCH ×2 (08:24→21:00)
[2016-12-19] MEDS: DOCUSATE SODIUM 100 MG CAP PO SCH ×2 (08:24→21:00)
[2016-12-19] MEDS: levETIRAcetam INJ 500 MG in SODIUM CHLORIDE 0.9% INJ 100 ML IV SCH ×2 (08:24→20:59)
--- NOTE | 2016-12-19 08:27 | RADRPT ---
EXAM DATE/TIME: 12/19/2016 04:48 [facility] COMPARISON: CHEST SINGLE AP, December 18, 2016, 4:41. INDICATIONS : Short of breath. MEDICAL HISTORY : None. SURGICAL HISTORY : None. ENCOUNTER: Subsequent ACUITY: 1 week PAIN SCORE: 0/10 LOCATION: Bilateral chest FINDINGS: Endotracheal tube, nasogastric tube and left subclavian central line are stable. Consolidation involv ing the left lung base in the medial right base. Cardiac contours are grossly stable. CONCLUSION: Developing bibasilar infiltrates Иван Nair MD on December 19, 2016 at 5:44 Board Certified Radiologist. This report was verified electronically.
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
--- NOTE | 2016-12-19 09:41 | EKG ---
Date Performed: 12/18/2016 Time Performed: 11:48:58 PTAGE: 31 years EKG: Sinus bradycardia. Possible left posterior fascicular block Extensive T wave changes may be due to myocardial ischemia Abnormal ECG NO PREVIOUS TRACING DOCTOR: Donovan Archibald Interpretating Date/Time 12/19/2016 09:39:24
--- NOTE | 2016-12-19 11:10 | RADRPT ---
EXAM DATE/TIME: 12/19/2016 10:28 [place] COMPARISON: CT BRAIN W/O CONTRAST, December 17, 2016, 4:31. INDICATIONS : Evaluate intracerebral hemorrhage. RADIATION DOSE: 58.07 CTDIvol (mGy) MEDICAL HISTORY : None SURGICAL HISTORY : None. ENCOUNTER: Initial ACUITY: 1 day PAIN SCALE: 0/10 LOCATION: TECHNIQUE: Multiple contiguous axial images were obtained of the head. Using automated exposure control and adj ustment of the mA and/or kV according to patient size, radiation dose was kept as low as reasonably a chievable to obtain optimal diagnostic quality images. FINDINGS: CEREBRUM: Bilateral parenchymal hemorrhages are again identified involving the left frontal, bilateral temporal , and bilateral parietal regions. No change in size of the hemorrhages. No change in the degree of ma ss effect. Intraventricular component of the hemorrhage is unchanged. Midline parafalcine hemorrhage also unchanged. Ventricles unchanged. Left-sided ventriculostomy catheter remains in place. POSTERIOR FOSSA: The cerebellum and brainstem are intact. The 4th ventricle is midline. The cerebellopontine angle i s unremarkable. EXTRACRANIAL: Air-fluid level in the left maxillary sinus now seen. SKULL: Postsurgical findings of the left side of the skull again seen. Left-sided surgical drain in place. CONCLUSION: No significant interval change. Bilateral parenchymal hemorrhages as well as parafalcine and intraven tricular hemorrhages again seen. No change in mass effect. No change in the size of ventricles. Agustina Bauer MD on December 19, 2016 at 11:05 Board Certified Radiologist. This report was verified electronically.
[2016-12-19 11:32] LABS: MAGNESIUM 2.5 MG/DL (1.5-2.5)
--- NOTE | 2016-12-19 11:32 | OTSOAPIP ---
TIME SESSION COMPLETED: 1130 TREATMENT TIME: 0 MINS. CHART REVIEWED. PT REMAINS NOT STABLE FOR OCCUPATIONAL THERAPY. WILL SIGN OFF AND AWAIT NEUROSURGERY ORDES WHEN APPROPRIATE. Therapist: GABRIEL NDIAYE OT/L Signature on file
[2016-12-19] MEDS: AMANTADINE HCL SOLN 100 MG/10 ML UDC PO SCH (12:01)
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
[2016-12-19] MEDS: fentaNYL DRIP 250 ML IV SCH (18:23)
[2016-12-19] MEDS: MAGNESIUM HYDROXIDE SUSP 30 ML CUP PO SCH (21:00)
[2016-12-19] MEDS: PANTOPRAZOLE SODIUM 40 MG VIAL IV SCH (22:35)
[2016-12-19 23:50] LABS: MAGNESIUM 2.7 MG/DL (1.5-2.5)
[2016-12-20] VITALS (20 sets, daily range): BP systolic 132–151; BP diastolic 71–75; PULSE 67–92; RESP 21–24; TEMP 97.8–99.3; O2SAT 94–100
[2016-12-20 00:36] LABS: POTASSIUM 3.4 MEQ/L (3.5-5.1)
[2016-12-20] MEDS: POTASSIUM CHLOR 40 MEQ PREMIX 100 ML IV PRN (00:56)
[2016-12-20 01:07] LABS: HEMATOCRIT 23.9 % (39.0-51.0); REVIEW FLAG FINAL
[2016-12-20] MEDS: PANTOPRAZOLE SODIUM 40 MG VIAL IV SCH (01:24)
[2016-12-20 04:14] LABS: BASOPHIL % 0.2 % (0.0-2.0); EOSINOPHIL # 0.3 TH/MM3 (0-0.4); EOSINOPHIL % 3.3 % (0.0-4.0); HEMATOCRIT 23.8 % (39.0-51.0); LYMPH % 8.8 % (9.0-44.0); LYMPHOCYTE # 0.9 TH/MM3 (1.0-4.8); MEAN CELL VOLUME 87.3 FL (80.0-100.0); MEAN CORPUSCULAR HEMOGLOBIN 30.1 PG (27.0-34.0); MEAN CORPUSCULAR HGB CONC 34.5 % (32.0-36.0); MONO % 7.7 % (0.0-8.0); PLATELET COUNT 178 TH/MM3 (150-450); RED BLOOD COUNT 2.72 MIL/MM3 (4.50-5.90); RED CELL DISTRIBUTION WIDTH 14.8 % (11.6-17.2)
[2016-12-20 04:21] LABS: HEMO FLAGS AUTO DIFF
[2016-12-20 04:21] LABS: BLOOD GAS BASE EXCESS -3.8 mmol/L (-2-2); BLOOD GAS CARBOXYHEMOGLOBIN 1.1 % (0-4); BLOOD GAS HCO3 20 mmol/L (22-26); BLOOD GAS METHEMOGLOBIN 0.9 % (0-2); BLOOD GAS O2 HGB SATURATION 92 % (90-100); BLOOD GAS OXYGEN CONTENT 16.9 Vol % (12.0-20.0); BLOOD GAS PCO2 34 mmHg (38-42); BLOOD GAS PO2 71 mmHg (61-120); BLOOD GAS TOTAL HGB 13.1 G/DL (12.0-16.0); CRITICAL VALUE NO; OXYGEN DEVICE VENTILATOR; TEMP CORR TO 98.6
[2016-12-20 04:22] LABS: DRAW SITE ALINE; FIO2 30 %; STAT NO
[2016-12-20 04:39] LABS: ALKALINE PHOSPHATASE 81 U/L (45-117); ALT (GPT) 74 U/L (12-78); ANION GAP 8 MEQ/L (5-15); AST (GOT) 72 U/L (15-37); BLOOD UREA NITROGEN 15 MG/DL (7-18); CHLORIDE 124 MEQ/L (98-107); GLOMERULAR FILTRATION RATE 150 ML/MIN (>89); MAGNESIUM 2.6 MG/DL (1.5-2.5); POTASSIUM 3.7 MEQ/L (3.5-5.1); TOTAL BILIRUBIN ADULT 0.4 MG/DL (0.2-1.0)
[2016-12-20 04:40] LABS: SODIUM (NA) 156 MEQ/L (136-145)
--- NOTE | 2016-12-20 04:47 | RADRPT ---
EXAM DATE/TIME: 12/20/2016 02:42 [facility] COMPARISON: CHEST SINGLE AP, December 19, 2016, 4:48. INDICATIONS : Respiratory distress. MEDICAL HISTORY : None. SURGICAL HISTORY : None. ENCOUNTER: Subsequent ACUITY: 1 week PAIN SCORE: Non-responsive. LOCATION: Bilateral chest FINDINGS: Endotracheal tube, nasogastric tube and left subclavian central line are stable. There has been sligh t interval worsening in aeration with increase in right base infiltrate. Fraser of left base infi ltrate also appears slightly worse. Cardiac contours are stable. CONCLUSION: Slight interval worsening in aeration Иван Nair MD on December 20, 2016 at 4:44 Board Certified Radiologist. This report was verified electronically.
[2016-12-20] MEDS: PROPOFOL 1000 MG/100 ML INJ 100 ML IV SCH ×6 (06:18→21:54)
[2016-12-20] MEDS: AMANTADINE HCL SOLN 100 MG/10 ML UDC PO SCH (06:18)
[2016-12-20] MEDS: SODIUM PHOSPHATE INJ 30 MMOL in SODIUM CHLOR 0.9% 250 ML INJ 240 ML IV PRN (06:40)
[2016-12-20 06:58] LABS: BANDS 23 % (0-6); NEUTROPHIL # MANUAL DIFF 8.7 TH/MM3 (1.8-7.7); POLYS (SEG NEUTROPHILS) 64 % (16-70); WBC DIFF SAMPLE 100
[2016-12-20 06:59] LABS: PLATELET ESTIMATE SMEAR NORMAL (NORMAL); PLATELET MORPHOLOGY NORMAL (NORMAL); SCAN/DIFF FINAL DIFF MANUAL
[2016-12-20] MEDS: CHLORHEXIDINE 0.12% (ORAL KIT) 15 ML CUP MT SCH ×2 (08:00→19:32)
[2016-12-20] MEDS: SODIUM CHLORIDE 0.9% FLUSH 10 ML FLUSH IV FLUSH SCH ×2 (09:00→20:16)
[2016-12-20] MEDS: levETIRAcetam INJ 500 MG in SODIUM CHLORIDE 0.9% INJ 100 ML IV SCH ×2 (09:11→20:15)
[2016-12-20] MEDS: DOCUSATE SODIUM 100 MG CAP PO SCH ×2 (09:11→20:16)
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
[2016-12-20] MEDS ORDERED: BISACODYL 10 MG SUPP RECTAL ONE (10:00)
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
[2016-12-20] MEDS: LACTULOSE SYRUP 20 GM/30 ML CUP PO SCH (10:25)
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
[2016-12-20 11:50] LABS: MAGNESIUM 2.5 MG/DL (1.5-2.5)
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
[2016-12-20] MEDS: hydrALAZINE HCL 20 MG/ML VIAL IV PRN (13:52)
[2016-12-20] MEDS: MIDAZOLAM HCL 2 MG/2 ML VIAL IV PUSH PRN (15:25)
[2016-12-20] MEDS: fentaNYL DRIP 250 ML IV SCH (16:19)
[2016-12-20] MEDS ORDERED: MIDAZOLAM HCL 5 MG/ML VIAL (1 ML) ONE (16:28)
[2016-12-20] MEDS ORDERED: MIDAZOLAM HCL 5 MG/ML VIAL (1 ML) IV ONE (16:45)
[2016-12-20 17:37] LABS: MAGNESIUM 2.5 MG/DL (1.5-2.5)
[2016-12-20] MEDS: MIDAZOLAM 100 MG/NS 100 ML DRIP Premix IV SCH (18:11)
[2016-12-20] MEDS: MAGNESIUM HYDROXIDE SUSP 30 ML CUP PO SCH (20:16)
[2016-12-21] VITALS (19 sets, daily range): BP systolic 122–154; BP diastolic 67–76; PULSE 72–92; RESP 22–28; TEMP 98.4–100.2; O2SAT 98–100
[2016-12-21 01:24] LABS: MAGNESIUM 2.5 MG/DL (1.5-2.5)
[2016-12-21] MEDS: PROPOFOL 1000 MG/100 ML INJ 100 ML IV SCH ×8 (01:25→23:24)
[2016-12-21] MEDS: fentaNYL DRIP 250 ML IV SCH ×3 (02:09→23:39)
[2016-12-21] MEDS: ACETAMINOPHEN 650 MG/20.3 ML UDC PO PRN ×2 (02:58→20:21)
[2016-12-21] MEDS: CHLORHEXIDINE 0.12% (ORAL KIT) 15 ML CUP MT SCH ×2 (08:00→20:00)
[2016-12-21] MEDS: LACTULOSE SYRUP 20 GM/30 ML CUP PO SCH (08:16)
[2016-12-21] MEDS: levETIRAcetam INJ 500 MG in SODIUM CHLORIDE 0.9% INJ 100 ML IV SCH ×2 (08:16→20:20)
[2016-12-21] MEDS: SODIUM CHLORIDE 0.9% FLUSH 10 ML FLUSH IV FLUSH SCH ×2 (08:16→20:21)
[2016-12-21] MEDS: DOCUSATE SODIUM 100 MG CAP PO SCH ×2 (08:16→20:21)
[2016-12-21] MEDS: MIDAZOLAM 100 MG/NS 100 ML DRIP Premix IV SCH (09:14)
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
[2016-12-21 09:38] LABS: AUTOMATED NEUTROPHIL # 6.6 TH/MM3 (1.8-7.7); BASOPHIL % 0.3 % (0.0-2.0); EOSINOPHIL # 0.4 TH/MM3 (0-0.4); EOSINOPHIL % 4.3 % (0.0-4.0); HEMATOCRIT 22.4 % (39.0-51.0); LYMPHOCYTE # 1.1 TH/MM3 (1.0-4.8); MEAN CELL VOLUME 87.3 FL (80.0-100.0); MEAN CORPUSCULAR HEMOGLOBIN 29.4 PG (27.0-34.0); MEAN CORPUSCULAR HGB CONC 33.6 % (32.0-36.0); MONO % 9.3 % (0.0-8.0); NEUT % 74.1 % (16.0-70.0); PLATELET COUNT 210 TH/MM3 (150-450); RED BLOOD COUNT 2.56 MIL/MM3 (4.50-5.90); RED CELL DISTRIBUTION WIDTH 14.3 % (11.6-17.2)
[2016-12-21 09:39] LABS: HEMO FLAGS AUTO DIFF
--- NOTE | 2016-12-21 09:46 | RADRPT ---
EXAM DATE/TIME: 12/21/2016 08:27 [facility] COMPARISON: CHEST SINGLE AP, December 20, 2016, 2:42. INDICATIONS : Infiltrates MEDICAL HISTORY : None. SURGICAL HISTORY : Ventriculostomy. ENCOUNTER: Subsequent ACUITY: 1 week PAIN SCORE: Non-responsive. LOCATION: Bilateral chest FINDINGS: ET tube, nasogastric tube, central venous catheter are in good position. Minimal bibasilar parenchym al changes are noted worse on the left than the right. Mild interstitial present is present. CONCLUSION: 1. Support apparatus in good position. 2. Minimal improvement with less bibasilar parenchymal changes. 3. Consolidative changes persist on the left. Brenden Terry MD FACR on December 21, 2016 at 9:26 Board Certified Radiologist. This report was verified electronically.
[2016-12-21 10:10] LABS: ANION GAP 7 MEQ/L (5-15); AST (GOT) 38 U/L (15-37); BICARBONATE 26.8 MEQ/L (21.0-32.0); BLOOD UREA NITROGEN 19 MG/DL (7-18); CHLORIDE 120 MEQ/L (98-107); GLOMERULAR FILTRATION RATE 165 ML/MIN (>89); POTASSIUM 3.4 MEQ/L (3.5-5.1); SODIUM (NA) 154 MEQ/L (136-145)
[2016-12-21 10:13] LABS: ALKALINE PHOSPHATASE 102 U/L (45-117); ALT (GPT) 61 U/L (12-78); TOTAL BILIRUBIN ADULT 0.5 MG/DL (0.2-1.0)
[2016-12-21 10:45] LABS: BANDS 34 % (0-6); CORRECTED NUCLEATED RBC 2 /100 WBC (0-0); EOSINOPHILS 3 % (0-4); METAMYELOCYTES 4 % (0-1); NEUTROPHIL # MANUAL DIFF 6.8 TH/MM3 (1.8-7.7); POLYS (SEG NEUTROPHILS) 37 % (16-70); WBC DIFF SAMPLE 100
[2016-12-21 10:46] LABS: PLATELET ESTIMATE SMEAR NORMAL (NORMAL); PLATELET MORPHOLOGY NORMAL (NORMAL); SCAN/DIFF FINAL DIFF MANUAL; TOXIC GRANULATION 1+ (NORMAL)
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
[2016-12-21 11:20] LABS: MAGNESIUM 2.5 MG/DL (1.5-2.5)
--- NOTE | 2016-12-21 11:27 | HHI.PR ---
Neuropsych Emotional Emotional: UnabletoAssess: Emotional, Anxious/Fearful, Depressed/Sad, Hostile/ Resentful, Irritable/Angry/Frustrate, Labile, Constricted/Blunted Behavior Behavior: Unable to Asses: Behavior, Coping/Acceptance, Cooperative w/ Treatment, Motivation, Frustration Tolerance/[place], Impulsive/Agitated, Suicidal/ Homicidal Risk Cognitive Cognitive: Unable to Asses: Cognitive, Attention/Concentration, Confused/ Orientation, Insight/Awareness, Judgement/Problem-Solving, Memory Psychosocial Psychosocial: Intact: Psychosocial, Family/Other Adjustment Progress Notes/Response to Tx Contents of Sessions: Level of Consciousness Time with Patient: 30 minutes Premorbid psychological status Premorbid Cognitive, Emotional and Behavioral Status: Stable. 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 He is . The patient has no psychiatric difficulties. Substance abuse history is unremarkable. Behavioral Reactions of Patient and Family/Support System: Stable. The patient s family is experiencing ongoing issues of adjustment given the nature of the injury, and this aspect of recovery will require ongoing monitoring. Emotional/Behavioral Status of Patient and Family/Support System: Stable. Pertinent issues, if appropriate to this patients clinical care, are described in detail above. Maximizing acute care outcome It is recommended that the patient be monitored for emergent behavioral impulsivity as the medical condition evolves. This patients neuropathological challenges may limit their rehabilitation potential going forward, and these challenges will require specialized therapeutic skills to maximize outcome. Additionally, the patients family is experiencing ongoing issues of adjustment given the traumatic nature of the injury, and they will need ongoing psychological assistance. Anticipated Problems Ongoing areas of concern will include behavioral impulsivity, lack of insight and judgment, which is expected to improve with time and treatment. Presently , the patient is not following commands. Treatment Plan This clinician will continue to follow with you throughout the course of this patients rehabilitation treatment, and I will be available to meet with the patients family/support system to facilitate their understanding and the ongoing care of their family member. The goals of neuropsychological intervention shall be both educational and supportive to the family/support system as is deemed clinically appropriate. [facility] Level: I:No response-total assistance Impression This 31 year old man s/p TBI 2T [facility] on 12/16/2016 sustained a severe traumatic brain injury. It is anticipated that he will experience significant residual neurocognitive and neurobehavioral sequelae from this accident. Diagnosis: (1) Major neurocognitive disorder as late effect of traumatic brain injury with behavioral disturbance Status: Acute Progress Note Narrative Please disregard previous progress note as it was filed in error. Ongoing follow -up of patient seen during daily trauma rounds. This is day 6 post injury. The patient has no neurobehavioral improvement since yesterday. Chart notes indicate that the patient's requires emotional support, and I made contact with the patient's , and am also providing her resources on traumatic brain injury. The patient remains on sedating medications. He remains at [facility]. I will continue to follow. Toi Welch PhD Dec 21, 2016 11:27
[2016-12-21] MEDS: POTASSIUM CHLOR 40 MEQ PREMIX 100 ML IV PRN (13:05)
--- NOTE | 2016-12-21 14:45 | HHI.PR ---
Neuropsych Emotional Emotional: UnabletoAssess: Emotional, Anxious/Fearful, Depressed/Sad, Hostile/ Resentful, Irritable/Angry/Frustrate, Labile, Constricted/Blunted Behavior Behavior: Unable to Asses: Behavior, Coping/Acceptance, Cooperative w/ Treatment, Motivation, Frustration Tolerance/[place], Impulsive/Agitated, Suicidal/ Homicidal Risk Cognitive Cognitive: Unable to Asses: Cognitive, Attention/Concentration, Confused/ Orientation, Insight/Awareness, Judgement/Problem-Solving, Memory Psychosocial Psychosocial: Intact: Psychosocial, Moderate: Family/Other Adjustment, Severe : Realistic Expectation Progress Notes/Response to Tx Contents of Sessions: Adjustment, Level of Consciousness Time with Patient: 30 minutes Premorbid psychological status Premorbid Cognitive, Emotional and Behavioral Status: Stable. 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 He is . The patient has no psychiatric difficulties. Substance abuse history is unremarkable. Behavioral Reactions of Patient and Family/Support System: Stable. The patient s family is experiencing ongoing issues of adjustment given the nature of the injury, and this aspect of recovery will require ongoing monitoring. Emotional/Behavioral Status of Patient and Family/Support System: Stable. Pertinent issues, if appropriate to this patients clinical care, are described in detail above. Maximizing acute care outcome It is recommended that the patient be monitored for emergent behavioral impulsivity as the medical condition evolves. This patients neuropathological challenges may limit their rehabilitation potential going forward, and these challenges will require specialized therapeutic skills to maximize outcome. Additionally, the patients family is experiencing ongoing issues of adjustment given the traumatic nature of the injury, and they will need ongoing psychological assistance. Anticipated Problems Ongoing areas of concern will include behavioral impulsivity, lack of insight and judgment, which is expected to improve with time and treatment. Presently , the patient is not following commands. Treatment Plan This clinician will continue to follow with you throughout the course of this patients rehabilitation treatment, and I will be available to meet with the patients family/support system to facilitate their understanding and the ongoing care of their family member. The goals of neuropsychological intervention shall be both educational and supportive to the family/support system as is deemed clinically appropriate. [facility] Level: I:No response-total assistance Impression This 31 year old man s/p TBI 2T [facility] on 12/16/2016 sustained a severe traumatic brain injury. It is anticipated that he will experience significant residual neurocognitive and neurobehavioral sequelae from this accident. Diagnosis: (1) Major neurocognitive disorder as late effect of traumatic brain injury with behavioral disturbance Status: Acute Progress Note Narrative Ongoing follow-up of patient seen during daily trauma rounds. This is day 6 post injury. The patient is neurobehaviorally unchanged. I spoke at length with the patient's (they are but not ) about issues related to his recovery, and I have brought to her a booklet on traumatic brain injury to facilitate her knowledge of the situation. She is in need of support , as previously identified by palliative care, and I have reached out to her to add a further layer of support. The patient remains at a [facility]. I will continue to follow. Toi Welch PhD Dec 21, 2016 14:44
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
[2016-12-21] MEDS ORDERED: Vancomycin Consult Pharmacy 1 EA OTHER SCH (16:30)
[2016-12-21] MEDS: CEFEPIME INJ 2,000 MG in SODIUM CHLORIDE 0.9% INJ 100 ML IV SCH (17:23)
[2016-12-21] MEDS: MIDAZOLAM HCL 2 MG/2 ML VIAL IV PUSH PRN (17:38)
[2016-12-21] MEDS: VANCOMYCIN INJ 2,000 MG in SODIUM CHLORID 0.9% 500 ML INJ 500 ML IV SCH (18:08)
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
[2016-12-21] MEDS: BACITRACIN TOP OINT 15 GM TUBE TOPICAL SCH (20:21)
[2016-12-21] MEDS: MAGNESIUM HYDROXIDE SUSP 30 ML CUP PO SCH (20:22)
[2016-12-22] VITALS (19 sets, daily range): BP systolic 133–157; BP diastolic 68–75; PULSE 66–88; RESP 26–28; TEMP 96.5–100.2; O2SAT 96–100
[2016-12-22] MEDS: PANTOPRAZOLE SODIUM 40 MG VIAL IV SCH ×2 (00:22→23:42)
[2016-12-22] MEDS: SODIUM PHOSPHATE INJ 30 MMOL in SODIUM CHLOR 0.9% 250 ML INJ 240 ML IV PRN (01:27)
[2016-12-22] MEDS: PROPOFOL 1000 MG/100 ML INJ 100 ML IV SCH ×8 (01:50→23:43)
[2016-12-22] MEDS: CEFEPIME INJ 2,000 MG in SODIUM CHLORIDE 0.9% INJ 100 ML IV SCH ×2 (04:33→17:02)
[2016-12-22] MEDS: ACETAMINOPHEN 650 MG/20.3 ML UDC PO PRN (04:33)
[2016-12-22] MEDS: VANCOMYCIN INJ 2,000 MG in SODIUM CHLORID 0.9% 500 ML INJ 500 ML IV SCH ×2 (05:42→17:46)
[2016-12-22 05:43] LABS: MAGNESIUM 2.6 MG/DL (1.5-2.5)
[2016-12-22 05:59] LABS: AUTOMATED NEUTROPHIL # 6.2 TH/MM3 (1.8-7.7); BASOPHIL # 0.1 TH/MM3 (0-0.2); BASOPHIL % 0.7 % (0.0-2.0); EOSINOPHIL # 0.3 TH/MM3 (0-0.4); EOSINOPHIL % 3.9 % (0.0-4.0); HEMATOCRIT 21.4 % (39.0-51.0); LYMPH % 10.7 % (9.0-44.0); LYMPHOCYTE # 0.9 TH/MM3 (1.0-4.8); MEAN CORPUSCULAR HEMOGLOBIN 29.4 PG (27.0-34.0); MEAN CORPUSCULAR HGB CONC 33.8 % (32.0-36.0); MONO % 11.3 % (0.0-8.0); NEUT % 73.4 % (16.0-70.0); PLATELET COUNT 246 TH/MM3 (150-450); RED BLOOD COUNT 2.46 MIL/MM3 (4.50-5.90); RED CELL DISTRIBUTION WIDTH 14.4 % (11.6-17.2); WHITE BLOOD COUNT 8.4 TH/MM3 (4.0-11.0)
[2016-12-22 06:01] LABS: HEMO FLAGS AUTO DIFF
[2016-12-22 07:35] LABS: BANDS 17 % (0-6); BASOPHILS 1 % (0-2); CORRECTED NUCLEATED RBC 3 /100 WBC (0-0); EOSINOPHILS 3 % (0-4); METAMYELOCYTES 1 % (0-1); MYELOCYTES 2 % (0-0); NEUTROPHIL # MANUAL DIFF 7.3 TH/MM3 (1.8-7.7); PLASMA CELLS 1 % (0-0); POLYS (SEG NEUTROPHILS) 67 % (16-70); WBC DIFF SAMPLE 100
[2016-12-22 07:36] LABS: DOHLE BODIES PRESENT (NONE SEEN)
[2016-12-22 07:37] LABS: PLATELET ESTIMATE SMEAR NORMAL (NORMAL); PLATELET MORPHOLOGY ENLARGED (NORMAL); TOXIC GRANULATION 1+ (NORMAL)
[2016-12-22 07:38] LABS: SCAN/DIFF FINAL DIFF MANUAL
[2016-12-22] MEDS: LACTULOSE SYRUP 20 GM/30 ML CUP PO SCH (08:07)
[2016-12-22] MEDS: fentaNYL DRIP 250 ML IV SCH ×2 (08:07→17:03)
[2016-12-22] MEDS: levETIRAcetam INJ 500 MG in SODIUM CHLORIDE 0.9% INJ 100 ML IV SCH ×2 (08:07→20:22)
[2016-12-22] MEDS: BACITRACIN TOP OINT 15 GM TUBE TOPICAL SCH ×2 (08:08→20:23)
[2016-12-22] MEDS: SODIUM CHLORIDE 0.9% FLUSH 10 ML FLUSH IV FLUSH SCH ×2 (08:08→20:22)
[2016-12-22] MEDS: DOCUSATE SODIUM 100 MG CAP PO SCH ×2 (08:08→20:22)
[2016-12-22] MEDS: CHLORHEXIDINE 0.12% (ORAL KIT) 15 ML CUP MT SCH ×2 (08:08→20:22)
[2016-12-22 09:35] LABS: ANION GAP 10 MEQ/L (5-15); AST (GOT) 45 U/L (15-37); BICARBONATE 26.3 MEQ/L (21.0-32.0); BLOOD UREA NITROGEN 20 MG/DL (7-18); CHLORIDE 119 MEQ/L (98-107); GLOMERULAR FILTRATION RATE 165 ML/MIN (>89); POTASSIUM 3.3 MEQ/L (3.5-5.1); SODIUM (NA) 155 MEQ/L (136-145)
[2016-12-22 09:36] LABS: ALT (GPT) 65 U/L (12-78)
[2016-12-22 09:38] LABS: ALKALINE PHOSPHATASE 163 U/L (45-117); TOTAL BILIRUBIN ADULT 0.7 MG/DL (0.2-1.0)
[2016-12-22 09:40] LABS: BLOOD GAS BASE EXCESS 0.6 mmol/L (-2-2); BLOOD GAS CARBOXYHEMOGLOBIN 1.5 % (0-4); BLOOD GAS HCO3 24 mmol/L (22-26); BLOOD GAS METHEMOGLOBIN 0.8 % (0-2); BLOOD GAS O2 HGB SATURATION 96 % (90-100); BLOOD GAS OXYGEN CONTENT 11.2 Vol % (12.0-20.0); BLOOD GAS PCO2 31 mmHg (38-42); BLOOD GAS PO2 103 mmHg (61-120); BLOOD GAS TOTAL HGB 8.1 G/DL (12.0-16.0); CRITICAL VALUE NO; OXYGEN DEVICE VENTILATOR; TEMP CORR TO 98.6
[2016-12-22 09:41] LABS: DRAW SITE ART LINE; FIO2 30 %; STAT NO; VENT SETTINGS 28/650/IT0.8/+5
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
[2016-12-22] MEDS: POTASSIUM CHLOR 40 MEQ PREMIX 100 ML IV PRN ×2 (10:09→17:46)
[2016-12-22 11:00] LABS: BLOOD GAS BASE EXCESS 1.8 mmol/L (-2-2); BLOOD GAS CARBOXYHEMOGLOBIN 1.5 % (0-4); BLOOD GAS HCO3 24 mmol/L (22-26); BLOOD GAS METHEMOGLOBIN 0.9 % (0-2); BLOOD GAS O2 HGB SATURATION 96 % (90-100); BLOOD GAS OXYGEN CONTENT 12.3 Vol % (12.0-20.0); BLOOD GAS PCO2 29 mmHg (38-42); BLOOD GAS PO2 96 mmHg (61-120); BLOOD GAS TOTAL HGB 9.1 G/DL (12.0-16.0); TEMP CORR TO 98.6
[2016-12-22 11:01] LABS: CRITICAL VALUE YES; DRAW SITE ART LINE; FIO2 30 %; OXYGEN DEVICE VENTILATOR; STAT NO; VENT SETTINGS 28/650/IT0.8/+5
[2016-12-22] MEDS: BISACODYL 10 MG SUPP RECTAL PRN (11:20)
[2016-12-22] MEDS: MIDAZOLAM 100 MG/NS 100 ML DRIP Premix IV SCH (17:03)
[2016-12-22 17:26] LABS: ALKALINE PHOSPHATASE 203 U/L (45-117); ALT (GPT) 58 U/L (12-78); ANION GAP 7 MEQ/L (5-15); AST (GOT) 37 U/L (15-37); BICARBONATE 27.3 MEQ/L (21.0-32.0); BLOOD UREA NITROGEN 24 MG/DL (7-18); CHLORIDE 121 MEQ/L (98-107); GLOMERULAR FILTRATION RATE 175 ML/MIN (>89); SODIUM (NA) 155 MEQ/L (136-145); TOTAL BILIRUBIN ADULT 0.5 MG/DL (0.2-1.0)
[2016-12-22 17:31] LABS: POTASSIUM 2.9 MEQ/L (3.5-5.1)
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
[2016-12-22] MEDS: MAGNESIUM HYDROXIDE SUSP 30 ML CUP PO SCH (20:23)
[2016-12-23] VITALS (20 sets, daily range): BP systolic 130–143; BP diastolic 70–84; PULSE 73–91; RESP 24–30; TEMP 96.5–100.5; O2SAT 94–100
[2016-12-23 01:07] LABS: POTASSIUM 3.6 MEQ/L (3.5-5.1)
[2016-12-23] MEDS: PROPOFOL 1000 MG/100 ML INJ 100 ML IV SCH ×6 (02:20→21:54)
[2016-12-23] MEDS: ACETAMINOPHEN 650 MG/20.3 ML UDC PO PRN (03:47)
[2016-12-23] MEDS: fentaNYL DRIP 250 ML IV SCH ×2 (03:49→08:17)
[2016-12-23] MEDS: CEFEPIME INJ 2,000 MG in SODIUM CHLORIDE 0.9% INJ 100 ML IV SCH ×2 (03:57→16:46)
[2016-12-23] MEDS ORDERED: PHARMACY ORDERED LAB ONE (06:00)
[2016-12-23 06:25] LABS: VANCOMYCIN TROUGH 6.4 MCG/ML (5.0-10.0)
[2016-12-23] MEDS: VANCOMYCIN INJ 2,000 MG in SODIUM CHLORID 0.9% 500 ML INJ 500 ML IV SCH ×3 (06:32→21:55)
[2016-12-23 07:39] LABS: AUTOMATED NEUTROPHIL # 9.8 TH/MM3 (1.8-7.7); BASOPHIL % 0.3 % (0.0-2.0); EOSINOPHIL # 0.4 TH/MM3 (0-0.4); EOSINOPHIL % 3.6 % (0.0-4.0); LYMPH % 7.4 % (9.0-44.0); LYMPHOCYTE # 0.9 TH/MM3 (1.0-4.8); MEAN CELL VOLUME 87.2 FL (80.0-100.0); MEAN CORPUSCULAR HEMOGLOBIN 30.3 PG (27.0-34.0); MEAN CORPUSCULAR HGB CONC 34.7 % (32.0-36.0); MONO % 10.7 % (0.0-8.0); PLATELET COUNT 272 TH/MM3 (150-450); RED CELL DISTRIBUTION WIDTH 14.3 % (11.6-17.2); WHITE BLOOD COUNT 12.6 TH/MM3 (4.0-11.0)
[2016-12-23 07:42] LABS: HEMO FLAGS DIFF FINAL
[2016-12-23 07:44] LABS: HEMATOCRIT 20.1 % (39.0-51.0)
[2016-12-23] MEDS: CHLORHEXIDINE 0.12% (ORAL KIT) 15 ML CUP MT SCH ×2 (07:46→20:21)
[2016-12-23] MEDS: DOCUSATE SODIUM 100 MG CAP PO SCH ×2 (08:17→20:23)
[2016-12-23] MEDS: levETIRAcetam INJ 500 MG in SODIUM CHLORIDE 0.9% INJ 100 ML IV SCH ×2 (08:17→20:22)
[2016-12-23] MEDS: BACITRACIN TOP OINT 15 GM TUBE TOPICAL SCH ×2 (08:17→20:23)
[2016-12-23] MEDS: LACTULOSE SYRUP 20 GM/30 ML CUP PO SCH (08:17)
[2016-12-23] MEDS: SODIUM CHLORIDE 0.9% FLUSH 10 ML FLUSH IV FLUSH SCH ×2 (08:17→20:22)
[2016-12-23 08:45] LABS: ANION GAP 9 MEQ/L (5-15); AST (GOT) 33 U/L (15-37); BICARBONATE 26.3 MEQ/L (21.0-32.0); BLOOD UREA NITROGEN 22 MG/DL (7-18); CHLORIDE 119 MEQ/L (98-107); GLOMERULAR FILTRATION RATE 155 ML/MIN (>89); POTASSIUM 3.7 MEQ/L (3.5-5.1); SODIUM (NA) 154 MEQ/L (136-145)
[2016-12-23 08:46] LABS: ALT (GPT) 55 U/L (12-78)
[2016-12-23 08:48] LABS: ALKALINE PHOSPHATASE 159 U/L (45-117); TOTAL BILIRUBIN ADULT 0.7 MG/DL (0.2-1.0)
[2016-12-23] MEDS ORDERED: MAGNESIUM CITRATE SOLN 300 ML BTL PO ONE (09:30)
[2016-12-23] MEDS: MIDAZOLAM 100 MG/NS 100 ML DRIP Premix IV SCH (10:40)
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
--- NOTE | 2016-12-23 11:59 | RADRPT ---
EXAM DATE/TIME: 12/23/2016 11:01 [place] COMPARISON: CHEST SINGLE AP, December 21, 2016, 8:27. INDICATIONS : Evalute for infiltrates. MEDICAL HISTORY : None. SURGICAL HISTORY : Ventriculostomy. ENCOUNTER: Initial ACUITY: 1 day PAIN SCORE: Non-responsive. LOCATION: Bilateral chest FINDINGS: A single portable frontal view of the chest shows an endotracheal tube with the tip 5 cm proximal to the lauro. A left subclavian central line and nasogastric tube noted. Bibasilar pulmonary infiltrate s have shown progression from the prior study. Heart normal size. CONCLUSION: Some progression in the bilateral pulmonary infiltrates. Stephan Gomez Jr., MD on December 23, 2016 at 11:57 Board Certified Radiologist. This report was verified electronically.
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
[2016-12-23] MEDS: BISACODYL 10 MG SUPP RECTAL PRN (14:14)
[2016-12-23 16:35] LABS: HEMATOCRIT 25.9 % (39.0-51.0); REVIEW FLAG FINAL
[2016-12-23 16:56] LABS: ALT (GPT) 63 U/L (12-78); ANION GAP 6 MEQ/L (5-15); AST (GOT) 48 U/L (15-37); BICARBONATE 25.7 MEQ/L (21.0-32.0); BLOOD UREA NITROGEN 21 MG/DL (7-18); CHLORIDE 121 MEQ/L (98-107); GLOMERULAR FILTRATION RATE 155 ML/MIN (>89); POTASSIUM 3.8 MEQ/L (3.5-5.1); SODIUM (NA) 153 MEQ/L (136-145)
[2016-12-23 16:59] LABS: ALKALINE PHOSPHATASE 188 U/L (45-117); TOTAL BILIRUBIN ADULT 1.2 MG/DL (0.2-1.0)
[2016-12-23] MEDS: MAGNESIUM HYDROXIDE SUSP 30 ML CUP PO SCH (20:23)
[2016-12-23] MEDS ORDERED: RESP: ALBUTEROL 2.5 MG/IPRATROPIUM 0.5 MG NEB (PRN) NEB (22:30)
[2016-12-24] VITALS (20 sets, daily range): BP systolic 133–151; BP diastolic 78–90; PULSE 71–90; RESP 24–34; TEMP 97.4–99.6; O2SAT 93–100
[2016-12-24] MEDS: PANTOPRAZOLE SODIUM 40 MG VIAL IV SCH ×2 (00:26→22:12)
[2016-12-24] MEDS: PROPOFOL 1000 MG/100 ML INJ 100 ML IV SCH ×5 (00:39→22:12)
[2016-12-24] MEDS: fentaNYL DRIP 250 ML IV SCH ×3 (00:39→19:51)
[2016-12-24] MEDS: CEFEPIME INJ 2,000 MG in SODIUM CHLORIDE 0.9% INJ 100 ML IV SCH ×2 (04:09→18:18)
[2016-12-24] MEDS: RESP: ALBUTEROL 2.5 MG/IPRATROPIUM 0.5 MG NEB (SCH) NEB ×4 (04:56→20:47)
[2016-12-24] MEDS ORDERED: PHARMACY ORDERED LAB ONE (05:45)
[2016-12-24 05:51] LABS: AUTOMATED NEUTROPHIL # 14.3 TH/MM3 (1.8-7.7); BASOPHIL % 0.3 % (0.0-2.0); EOSINOPHIL # 0.3 TH/MM3 (0-0.4); EOSINOPHIL % 1.6 % (0.0-4.0); HEMATOCRIT 23.3 % (39.0-51.0); LYMPH % 6.6 % (9.0-44.0); LYMPHOCYTE # 1.2 TH/MM3 (1.0-4.8); MEAN CELL VOLUME 84.6 FL (80.0-100.0); MEAN CORPUSCULAR HEMOGLOBIN 28.8 PG (27.0-34.0); MEAN CORPUSCULAR HGB CONC 34.1 % (32.0-36.0); MONO % 9.3 % (0.0-8.0); NEUT % 82.2 % (16.0-70.0); PLATELET COUNT 348 TH/MM3 (150-450); RED BLOOD COUNT 2.76 MIL/MM3 (4.50-5.90); RED CELL DISTRIBUTION WIDTH 15.9 % (11.6-17.2); WHITE BLOOD COUNT 17.4 TH/MM3 (4.0-11.0)
[2016-12-24 05:52] LABS: HEMO FLAGS AUTO DIFF
--- NOTE | 2016-12-24 06:46 | PD.ORT.PN ---
Subjective Subjective Remarks s/p right femoral head fx and right acetabulum fx s/p ORIF right BBFA by Dr Amaro intubated/sedated. patient status declining. Per nurse, meeting today to decide if to withdraw care or not. Objective Vitals Vital Signs Date Time Temp Pulse Resp B/P Pulse Ox O2 Delivery O2 Flow Rate FiO2 12/24/16 06:00 79 12/24/16 04:56 100 35 12/24/16 04:00 35 12/24/16 04:00 98.8 78 24 148/78 100 12/24/16 04:00 78 12/24/16 02:00 73 12/24/16 00:10 100 35 12/24/16 00:00 97.4 71 24 141/84 100 12/24/16 00:00 71 12/24/16 00:00 35 12/23/16 22:00 73 12/23/16 20:15 100 35 12/23/16 20:15 100 35 12/23/16 20:00 35 12/23/16 20:00 99.4 84 29 143/78 100 12/23/16 20:00 84 12/23/16 18:00 89 12/23/16 16:00 35 12/23/16 16:00 87 12/23/16 16:00 98.0 84 30 140/84 95 12/23/16 15:25 94 35 12/23/16 14:00 81 12/23/16 13:23 99 35 12/23/16 12:00 78 12/23/16 12:00 35 12/23/16 12:00 96.5 76 24 135/76 98 12/23/16 11:31 95 35 12/23/16 10:50 96.5 76 24 130/70 99 12/23/16 10:00 78 12/23/16 08:00 86 12/23/16 08:00 35 12/23/16 08:00 98.7 84 24 135/73 98 12/23/16 07:42 97 35 12/23/16 07:42 97 35 I/O 12/23/16 12/23/16 12/23/16 12/24/16 12/24/16 12/24/16 07:00 15:00 23:00 07:00 15:00 23:00 Intake Total 983 ml 2279 ml 966 ml 1004 ml Output Total 824.0 ml 967 ml 1262 ml 1479 ml Balance 159.0 ml 1312 ml -296 ml -475 ml Intake IV Total 625 ml 1598 ml 906 ml 1004 ml Tube Feeding 298 ml 431 ml Packed Cells 250 ml Other 60 ml 60 ml 0 ml Output Urine Total 625 ml 900 ml 1200 ml 1425 ml Tube Feeding Residual Discard 120.0 ml 0 ml 0 ml 0 ml Drainage Total 79 ml 67 ml 62 ml 54 ml # Bowel Movements 0 0 0 1 Result Diagram: 12/24/16 0545 12/24/16 0400 Imaging Last [address] 12/17/16 06 Signed Impressions: Service Date/Time: Saturday, December 17, 2016 04:31 - CONCLUSION: Developing large multifocal parenchymal brain hemorrhages. Иван Nair MD Chest X-Ray 12/17/16599 Signed Impressions: Service Date/Time: Saturday, December 17, 2016 04:44 - CONCLUSION: Satisfactory chest appearance Иван Nair MD Procedures Irrigation debridement with ORIF right radius and ulna and fourth and fifth metacarpal fractures 12/16/16 Objective Remarks Angel is a 31-year-old male who appears well-developed well-nourished. He is intubated and sedated. Examination of right upper extremity reveals splint is dry and intact. There is swelling of the fingers and ecchymosis with good capillary refill. Motor and sensory exams are not possible Examination of left arm reveals no obvious pain or deformity with shoulder, elbow, or wrist motion. He has good cap refill in his fingers. Skin is intact except for some superficial abrasions. Examination of left lower extremity reveals no obvious pain or deformity with hip, knee, or ankle motion. Skin is intact. Dorsalis pedis pulses palpable. Diminished exam of the knee is negative. Examination of right lower extremity reveals no obvious pain or deformity with gentle hip motion. There is a large knee effusion. He has abrasions over his knee. Ligamentous exam of the knee is unremarkable. Calf and thigh compartments are soft. Dorsalis pedis pulses palpable. His lower extremity leg lengths appear equal. Assessment & Plan Problem List: (1) Acute subdural hematoma (2) Open fracture of radius and ulna (3) Open displaced fracture of neck of right fifth metacarpal bone (4) Displaced fracture of fourth metacarpal bone of right hand (5) Fracture dislocation of right hip joint (6) Fracture of head of right femur Assessment and Plan 1) Right BBFA Fx s/p ORIF by Dr Amaro 2) Right Femoral Head Fx with Posterior Wall Acetabulum fx -patient status declining and still not a surgical candidate. will continue current plan of care unless any changes to status Alexis Devi Dec 24, 2016 06:46
[2016-12-24 07:00] LABS: BANDS 14 % (0-6); EOSINOPHILS 3 % (0-4); NEUTROPHIL # MANUAL DIFF 14.4 TH/MM3 (1.8-7.7); PLATELET ESTIMATE SMEAR NORMAL (NORMAL); PLATELET MORPHOLOGY NORMAL (NORMAL); POLYS (SEG NEUTROPHILS) 69 % (16-70); SCAN/DIFF FINAL DIFF MANUAL; WBC DIFF SAMPLE 100
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
[2016-12-24] MEDS ORDERED: VANCOMYCIN INJ 2,000 MG in SODIUM CHLORID 0.9% 500 ML INJ 500 ML IV SCH (08:00)
[2016-12-24] MEDS: CHLORHEXIDINE 0.12% (ORAL KIT) 15 ML CUP MT SCH ×2 (08:00→19:49)
[2016-12-24] MEDS: DOCUSATE SODIUM 100 MG CAP PO SCH ×2 (08:42→19:50)
[2016-12-24] MEDS: levETIRAcetam INJ 500 MG in SODIUM CHLORIDE 0.9% INJ 100 ML IV SCH ×2 (08:42→19:49)
[2016-12-24] MEDS: LACTULOSE SYRUP 20 GM/30 ML CUP PO SCH (08:42)
[2016-12-24] MEDS: SODIUM CHLORIDE 0.9% FLUSH 10 ML FLUSH IV FLUSH SCH ×2 (08:42→19:50)
[2016-12-24] MEDS: BACITRACIN TOP OINT 15 GM TUBE TOPICAL SCH ×2 (08:43→19:50)
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
[2016-12-24] MEDS: BISACODYL 10 MG SUPP RECTAL SCH (10:00)
[2016-12-24] MEDS ORDERED: ATROPINE SULFATE 1 MG/10 ML SYRINGE ONE (10:33)
[2016-12-24] MEDS ORDERED: LIDOCAINE HCL 2% 100 MG/5 ML SYRINGE ONE (10:33)
[2016-12-24] MEDS ORDERED: EPINEPHrine HCL (1:10,000) 1 MG/10 ML SYRINGE ONE (10:33)
[2016-12-24 11:30] LABS: ALT (GPT) 59 U/L (12-78); ANION GAP 8 MEQ/L (5-15); AST (GOT) 42 U/L (15-37); BICARBONATE 22.1 MEQ/L (21.0-32.0); BLOOD UREA NITROGEN 19 MG/DL (7-18); CHLORIDE 119 MEQ/L (98-107); GLOMERULAR FILTRATION RATE 175 ML/MIN (>89); MAGNESIUM 2.4 MG/DL (1.5-2.5); POTASSIUM 3.9 MEQ/L (3.5-5.1); SODIUM (NA) 149 MEQ/L (136-145)
[2016-12-24 11:32] LABS: ALKALINE PHOSPHATASE 203 U/L (45-117); TOTAL BILIRUBIN ADULT 0.6 MG/DL (0.2-1.0)
--- NOTE | 2016-12-24 11:32 | RADRPT ---
EXAM DATE/TIME: 12/24/2016 11:12 [facility] COMPARISON: CT BRAIN W/O CONTRAST, December 19, 2016, 10:28. INDICATIONS : Evaluate intracerebral hemorrhage. RADIATION DOSE: 56.35 CTDIvol (mGy) MEDICAL HISTORY : None SURGICAL HISTORY : None. ENCOUNTER: Subsequent ACUITY: 1 day PAIN SCALE: Non-responsive LOCATION: Bilateral head TECHNIQUE: Multiple contiguous axial images were obtained of the head. Using automated exposure control and adj ustment of the mA and/or kV according to patient size, radiation dose was kept as low as reasonably a chievable to obtain optimal diagnostic quality images. FINDINGS: Parenchymal contusion is present in the left Sylvian region with brain herniating through the operati ve site. Parenchymal contusions are seen in the deep left occipital region and the right temporal re gion. There is minimal right to left shift. It is in the order of 5 mm. The right lateral ventricl e is appropriate. The left lateral ventricle is collapsed. Posterior fossa is unremarkable. CONCLUSION: Evolving head trauma as described above. Brenden Terry MD FACR on December 24, 2016 at 11:23 Board Certified Radiologist. This report was verified electronically.
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
[2016-12-24 12:03] LABS: BLOOD GAS BASE EXCESS -7.3 mmol/L (-2-2); BLOOD GAS CARBOXYHEMOGLOBIN 0.8 % (0-4); BLOOD GAS HCO3 18 mmol/L (22-26); BLOOD GAS METHEMOGLOBIN 0.9 % (0-2); BLOOD GAS O2 HGB SATURATION 93 % (90-100); BLOOD GAS OXYGEN CONTENT 14.8 Vol % (12.0-20.0); BLOOD GAS PCO2 39 mmHg (38-42); BLOOD GAS PO2 84 mmHg (61-120); BLOOD GAS TOTAL HGB 11.3 G/DL (12.0-16.0); CRITICAL VALUE YES; OXYGEN DEVICE VENTILATOR; TEMP CORR TO 98.6
[2016-12-24 12:04] LABS: DRAW SITE ART LINE; FIO2 50 %; NUMBER OF ARTERIAL PUNCTURES 0; STAT NO; ULNAR PULSE PRESENT; VENT SETTINGS PRVC/28/550/.9/PEEP8
--- NOTE | 2016-12-24 12:50 | RADRPT ---
EXAM DATE/TIME: 12/24/2016 12:19 [facility] COMPARISON: CHEST SINGLE AP, December 23, 2016, 11:01. INDICATIONS : ET tube placement. MEDICAL HISTORY : None. SURGICAL HISTORY : None. ENCOUNTER: Subsequent ACUITY: 1 week PAIN SCORE: Non-responsive. LOCATION: chest FINDINGS: Single AP view of the chest. Endotracheal tube, nasogastric tube, and left subclavian central venous catheter remain in place. Bilateral severe lower lung zone pulmonary parenchymal opacity unchanged. N o evidence of pneumothorax. CONCLUSION: No significant interval change. Persistent severe bilateral pulmonary opacity. Art Bauer MD on December 24, 2016 at 12:44 Board Certified Radiologist. This report was verified electronically.
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
[2016-12-24] MEDS: 3% SALINE INJ 500 ML IV SCH (14:30)
[2016-12-24] MEDS: SODIUM CHLORIDE 23.4% INJ 240 MEQ in SYRINGE/BAG 1 EA IV PRN (14:42)
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
[2016-12-24] MEDS: MAGNESIUM HYDROXIDE SUSP 30 ML CUP PO SCH (19:50)
[2016-12-24] MEDS: MIDAZOLAM 100 MG/NS 100 ML DRIP Premix IV SCH (19:51)
[2016-12-24] MEDS: VANCOMYCIN INJ 2,000 MG in SODIUM CHLORID 0.9% 500 ML INJ 500 ML IV SCH (20:01)
[2016-12-25] VITALS (19 sets, daily range): BP systolic 135–150; BP diastolic 73–88; PULSE 73–94; RESP 28–32; TEMP 98.5–100.1; O2SAT 93–99
[2016-12-25] MEDS: PROPOFOL 1000 MG/100 ML INJ 100 ML IV SCH ×5 (00:46→16:16)
[2016-12-25] MEDS: RESP: ALBUTEROL 2.5 MG/IPRATROPIUM 0.5 MG NEB (SCH) NEB ×4 (03:21→20:04)
[2016-12-25] MEDS: CEFEPIME INJ 2,000 MG in SODIUM CHLORIDE 0.9% INJ 100 ML IV SCH (03:55)
[2016-12-25 04:10] LABS: AUTOMATED NEUTROPHIL # 17.4 TH/MM3 (1.8-7.7); BASOPHIL # 0.1 TH/MM3 (0-0.2); BASOPHIL % 0.5 % (0.0-2.0); EOSINOPHIL # 0.2 TH/MM3 (0-0.4); HEMATOCRIT 22.1 % (39.0-51.0); HEMO FLAGS DIFF FINAL; LYMPH % 6.3 % (9.0-44.0); LYMPHOCYTE # 1.3 TH/MM3 (1.0-4.8); MEAN CELL VOLUME 86.2 FL (80.0-100.0); MEAN CORPUSCULAR HEMOGLOBIN 28.2 PG (27.0-34.0); MEAN CORPUSCULAR HGB CONC 32.7 % (32.0-36.0); MONO % 6.3 % (0.0-8.0); NEUT % 85.9 % (16.0-70.0); PLATELET COUNT 328 TH/MM3 (150-450); RED BLOOD COUNT 2.56 MIL/MM3 (4.50-5.90); RED CELL DISTRIBUTION WIDTH 15.7 % (11.6-17.2); WHITE BLOOD COUNT 20.3 TH/MM3 (4.0-11.0)
[2016-12-25] MEDS: fentaNYL DRIP 250 ML IV SCH ×3 (04:45→20:29)
[2016-12-25] MEDS: 3% SALINE INJ 500 ML IV SCH (04:46)
[2016-12-25 05:01] LABS: ANION GAP 10 MEQ/L (5-15); AST (GOT) 41 U/L (15-37); BICARBONATE 21.5 MEQ/L (21.0-32.0); BLOOD UREA NITROGEN 20 MG/DL (7-18); CHLORIDE 121 MEQ/L (98-107); GLOMERULAR FILTRATION RATE 158 ML/MIN (>89); MAGNESIUM 2.4 MG/DL (1.5-2.5); POTASSIUM 3.9 MEQ/L (3.5-5.1); SODIUM (NA) 152 MEQ/L (136-145)
[2016-12-25 05:06] LABS: ALKALINE PHOSPHATASE 176 U/L (45-117); ALT (GPT) 58 U/L (12-78); CREATINE KINASE 131 U/L (39-308); TOTAL BILIRUBIN ADULT 0.7 MG/DL (0.2-1.0)
[2016-12-25 05:42] LABS: BLOOD GAS CARBOXYHEMOGLOBIN 1.3 % (0-4); BLOOD GAS HCO3 19 mmol/L (22-26); BLOOD GAS METHEMOGLOBIN 0.8 % (0-2); BLOOD GAS O2 HGB SATURATION 96 % (90-100); BLOOD GAS OXYGEN CONTENT 9.8 Vol % (12.0-20.0); BLOOD GAS PCO2 39 mmHg (38-42); BLOOD GAS PO2 119 mmHg (61-120); BLOOD GAS TOTAL HGB 7.1 G/DL (12.0-16.0); CRITICAL VALUE NO; OXYGEN DEVICE VENTILATOR; TEMP CORR TO 98.6
[2016-12-25 05:43] LABS: DRAW SITE ART LINE; FIO2 40 %; NUMBER OF ARTERIAL PUNCTURES 0; STAT NO
[2016-12-25] MEDS: MIDAZOLAM 100 MG/NS 100 ML DRIP Premix IV SCH ×2 (06:58→16:16)
[2016-12-25] MEDS: CHLORHEXIDINE 0.12% (ORAL KIT) 15 ML CUP MT SCH ×2 (08:00→20:18)
[2016-12-25] MEDS: DOCUSATE SODIUM 100 MG CAP PO SCH ×2 (08:21→20:29)
[2016-12-25] MEDS: BISACODYL 10 MG SUPP RECTAL SCH (08:22)
[2016-12-25] MEDS: SODIUM CHLORIDE 0.9% FLUSH 10 ML FLUSH IV FLUSH SCH ×2 (08:22→20:18)
[2016-12-25] MEDS: BACITRACIN TOP OINT 15 GM TUBE TOPICAL SCH ×2 (08:22→20:30)
[2016-12-25] MEDS: LACTULOSE SYRUP 20 GM/30 ML CUP PO SCH (08:22)
[2016-12-25] MEDS: VANCOMYCIN INJ 2,000 MG in SODIUM CHLORID 0.9% 500 ML INJ 500 ML IV SCH ×2 (08:45→18:26)
[2016-12-25] MEDS: levETIRAcetam INJ 500 MG in SODIUM CHLORIDE 0.9% INJ 100 ML IV SCH ×2 (08:45→20:29)
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
[2016-12-25] MEDS ORDERED: ALTEPLASE RECOMBINANT 2 MG VIAL INTRACATH ONE (09:30)
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
--- NOTE | 2016-12-25 12:00 | PD.ORT.PN ---
Subjective Post Op Day #: 9 Subjective Remarks Pt sedated and intubated. Subjective unobtainable. RN reports family is speaking with [facility] about possible organ donation. Objective Vitals Vital Signs Date Time Temp Pulse Resp B/P Pulse Ox O2 Delivery O2 Flow Rate FiO2 12/25/16 10:00 91 12/25/16 08:00 40 12/25/16 08:00 98.9 89 28 135/73 98 12/25/16 08:00 90 12/25/16 07:52 98 40 12/25/16 07:52 98 40 12/25/16 06:00 90 12/25/16 04:20 97 40 12/25/16 04:00 98.9 91 28 144/75 96 12/25/16 04:00 91 12/25/16 04:00 40 12/25/16 02:00 94 12/25/16 01:23 97 40 12/25/16 01:14 97 40 12/25/16 00:00 40 12/25/16 00:00 94 12/25/16 00:00 98.5 94 28 143/76 98 12/24/16 22:03 100 40 12/24/16 22:00 90 12/24/16 20:57 96 40 12/24/16 20:00 40 12/24/16 20:00 86 12/24/16 20:00 96 40 12/24/16 20:00 97.9 86 28 139/83 94 12/24/16 18:00 83 12/24/16 16:21 95 40 12/24/16 16:00 50 12/24/16 16:00 85 12/24/16 16:00 98.8 86 34 151/90 98 12/24/16 14:00 85 12/24/16 12:06 93 50 12/24/16 12:05 100 100 12/24/16 12:00 87 12/24/16 12:00 50 12/24/16 12:00 99.6 87 32 146/79 95 I/O 12/24/16 12/24/16 12/24/16 12/25/16 12/25/16 12/25/16 07:00 15:00 23:00 07:00 15:00 23:00 Intake Total 1004 ml 1132 ml 1333 ml 986 ml Output Total 1479 ml 1152 ml 1392 ml 1182 ml 0 ml Balance -475 ml -20 ml -59 ml -196 ml 0 ml Intake IV Total 1004 ml 1132 ml 1333 ml 986 ml Other 0 ml 0 ml 0 ml Output Urine Total 1425 ml 1100 ml 1325 ml 1125 ml Tube Feeding Residual Discard 0 ml 0 ml 0 ml 0 ml 0 ml Drainage Total 54 ml 52 ml 67 ml 57 ml # Bowel Movements 1 0 1 1 Result Diagram: 12/25/16 0400 12/25/16 0950 Imaging Last [address] 12/17/16599 Signed Impressions: Service Date/Time: Saturday, December 17, 2016 04:31 - CONCLUSION: Developing large multifocal parenchymal brain hemorrhages. Иван Nair MD Chest X-Ray 12/17/16599 Signed Impressions: Service Date/Time: Saturday, December 17, 2016 04:44 - CONCLUSION: Satisfactory chest appearance Иван Nair MD Procedures Irrigation debridement with ORIF right radius and ulna and fourth and fifth metacarpal fractures 12/16/16 Objective Remarks Angel is a 31-year-old male who appears well-developed well-nourished. He is intubated and sedated. Examination of right upper extremity reveals splint is dry and intact. There is swelling of the fingers and ecchymosis with good capillary refill. Motor and sensory exams are not possible Examination of left arm reveals no obvious pain or deformity with shoulder, elbow, or wrist motion. He has good cap refill in his fingers. Skin is intact except for some superficial abrasions. Examination of left lower extremity reveals no obvious pain or deformity with hip, knee, or ankle motion. Skin is intact. Dorsalis pedis pulses palpable. Diminished exam of the knee is negative. Examination of right lower extremity reveals no obvious pain or deformity with gentle hip motion. There is a large knee effusion. He has abrasions over his knee. Ligamentous exam of the knee is unremarkable. Calf and thigh compartments are soft. Dorsalis pedis pulses palpable. His lower extremity leg lengths appear equal. Assessment & Plan Ortho Post Op Day #: 9 Problem List: (1) Acute subdural hematoma (2) Open fracture of radius and ulna (3) Open displaced fracture of neck of right fifth metacarpal bone (4) Displaced fracture of fourth metacarpal bone of right hand (5) Fracture dislocation of right hip joint (6) Fracture of head of right femur Assessment and Plan 1) Right BBFA Fx s/p ORIF by Dr Amaro 2) Right Femoral Head Fx with Posterior Wall Acetabulum fx Staple removal over right forearm today. Pins would most likely need to stay in for 4-6 weeks for good fixation. Daily pin care. Keep ulnar gutter splint over 4 /5th digits. Patient status declining and still not a surgical candidate for acetabulum fracture. Will continue current plan of care unless any changes to status. Daisy Sampson Dec 25, 2016 12:00
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
[2016-12-25] MEDS: cefTRIAXone INJ 1,000 MG in SODIUM CHLORIDE 0.9% INJ 100 ML IV SCH (14:09)
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
[2016-12-25 18:37] LABS: BACTERIA, URINE RARE /hpf; BLOOD, URINE NEG (NEG); GLUCOSE,URINE NEG (NEG); KETONE, URINE NEG (NEG); MUCUS URINE FEW /lpf (OCC); NITRITE,URINE NEG (NEG); PH, URINE 5.5 (5.0-8.5); URINE COLOR YELLOW (YELLW/STRAW)
[2016-12-25 18:43] LABS: CULTURE IF INDICATED CATH CULTURE NOT IND
[2016-12-25 18:44] LABS: COMMENT (UR) CATH-CULT NOT IND
[2016-12-25] MEDS ORDERED: PHARMACY ORDERED LAB ONE (19:45)
[2016-12-25] MEDS: MAGNESIUM HYDROXIDE SUSP 30 ML CUP PO SCH (20:29)
[2016-12-25] MEDS ORDERED: 3% SALINE INJ 500 ML IV SCH (23:45)
[2016-12-25] MEDS: PANTOPRAZOLE SODIUM 40 MG VIAL IV SCH (23:46)
[2016-12-26] VITALS (13 sets, daily range): BP systolic 133–162; BP diastolic 75–90; PULSE 79–94; RESP 28–32; TEMP 97.6–100.1; O2SAT 0–100
[2016-12-26] MEDS: cefTRIAXone INJ 1,000 MG in SODIUM CHLORIDE 0.9% INJ 100 ML IV SCH ×2 (01:52→13:20)
[2016-12-26] MEDS: PROPOFOL 1000 MG/100 ML INJ 100 ML IV SCH ×2 (01:56→07:54)
[2016-12-26] MEDS: RESP: ALBUTEROL 2.5 MG/IPRATROPIUM 0.5 MG NEB (SCH) NEB ×2 (03:06→07:27)
[2016-12-26 05:59] LABS: AUTOMATED NEUTROPHIL # 11.5 TH/MM3 (1.8-7.7); BASOPHIL % 0.3 % (0.0-2.0); EOSINOPHIL # 0.2 TH/MM3 (0-0.4); EOSINOPHIL % 1.3 % (0.0-4.0); LYMPH % 7.4 % (9.0-44.0); MEAN CELL VOLUME 85.2 FL (80.0-100.0); MEAN CORPUSCULAR HEMOGLOBIN 28.8 PG (27.0-34.0); MEAN CORPUSCULAR HGB CONC 33.8 % (32.0-36.0); MONO % 8.1 % (0.0-8.0); NEUT % 82.9 % (16.0-70.0); PLATELET COUNT 362 TH/MM3 (150-450); RED BLOOD COUNT 2.38 MIL/MM3 (4.50-5.90); RED CELL DISTRIBUTION WIDTH 15.7 % (11.6-17.2); WHITE BLOOD COUNT 13.9 TH/MM3 (4.0-11.0)
[2016-12-26 06:04] LABS: HEMO FLAGS AUTO DIFF
[2016-12-26 06:05] LABS: APTT (PATIENT) 31.5 SEC (24.3-30.1); HEMATOCRIT 20.3 % (39.0-51.0); PROTHROMBIN TIME - PATIENT 10.8 SEC (9.8-11.6)
[2016-12-26 06:23] LABS: ALT (GPT) 59 U/L (12-78); AMYLASE 54 U/L (25-115); ANION GAP 11 MEQ/L (5-15); AST (GOT) 53 U/L (15-37); BICARBONATE 24.2 MEQ/L (21.0-32.0); BLOOD UREA NITROGEN 23 MG/DL (7-18); CHLORIDE 120 MEQ/L (98-107); GAMMA GT 223 U/L (15-85); GLOMERULAR FILTRATION RATE 171 ML/MIN (>89); POTASSIUM 3.4 MEQ/L (3.5-5.1); SODIUM (NA) 155 MEQ/L (136-145)
[2016-12-26 06:26] LABS: ALKALINE PHOSPHATASE 280 U/L (45-117); INDIRECT BILIRUBIN 0.2 MG/DL (0.0-0.8); TOTAL BILIRUBIN ADULT 0.5 MG/DL (0.2-1.0)
[2016-12-26] MEDS: VANCOMYCIN INJ 2,000 MG in SODIUM CHLORID 0.9% 500 ML INJ 500 ML IV SCH (07:48)
[2016-12-26] MEDS: CHLORHEXIDINE 0.12% (ORAL KIT) 15 ML CUP MT SCH (07:48)
[2016-12-26] MEDS: fentaNYL DRIP 250 ML IV SCH (07:49)
[2016-12-26] MEDS: LACTULOSE SYRUP 20 GM/30 ML CUP PO SCH (08:04)
[2016-12-26] MEDS: DOCUSATE SODIUM 100 MG CAP PO SCH (08:04)
[2016-12-26] MEDS: BISACODYL 10 MG SUPP RECTAL SCH (08:04)
[2016-12-26] MEDS: levETIRAcetam INJ 500 MG in SODIUM CHLORIDE 0.9% INJ 100 ML IV SCH (08:04)
[2016-12-26] MEDS: BACITRACIN TOP OINT 15 GM TUBE TOPICAL SCH (08:04)
[2016-12-26] MEDS: SODIUM CHLORIDE 0.9% FLUSH 10 ML FLUSH IV FLUSH SCH (08:04)
[2016-12-26 08:16] LABS: BANDS 1 % (0-6); EOSINOPHILS 1 % (0-4); MYELOCYTES 1 % (0-0); NEUTROPHIL # MANUAL DIFF 12.6 TH/MM3 (1.8-7.7); POLYS (SEG NEUTROPHILS) 89 % (16-70); WBC DIFF SAMPLE 100
[2016-12-26 08:17] LABS: PLATELET ESTIMATE SMEAR NORMAL (NORMAL); PLATELET MORPHOLOGY NORMAL (NORMAL); SCAN/DIFF FINAL DIFF MANUAL
[2016-12-26] MEDS: POTASSIUM CHLOR 40 MEQ PREMIX 100 ML IV PRN (08:48)
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
[2016-12-26 10:33] LABS: BACTERIA, URINE MANY /hpf; BLOOD, URINE NEG (NEG); GLUCOSE,URINE NEG (NEG); KETONE, URINE NEG (NEG); MUCUS URINE FEW /lpf (OCC); NITRITE,URINE NEG (NEG); PH, URINE 5.5 (5.0-8.5); URINE COLOR YELLOW (YELLW/STRAW)
[2016-12-26 10:34] LABS: COMMENT (UR) CATH-CULTURE IND; CULTURE IF INDICATED CATH CULTURE IND
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
[2016-12-26] MEDS: MIDAZOLAM 100 MG/NS 100 ML DRIP Premix IV SCH (13:25)
[2016-12-26] MEDS ORDERED: MIDAZOLAM 100 MG/ML INJ 100 ML IV SCH (13:45)
[2016-12-26] MEDS ORDERED: fentaNYL DRIP 250 ML IV SCH (13:45)
[2016-12-26] MEDS ORDERED: MORPHINE SULFATE 4 MG/ML INJ IV PRN (13:45)
[2016-12-26] MEDS ORDERED: LORazepam 2 MG/ML VIAL IV ONE ×2 (13:45→14:00)
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
[2016-12-26] MEDS ORDERED: ACETAMINOPHEN 650 MG SUPP RECTAL PRN (14:15)
[2016-12-26] MEDS ORDERED: LORazepam 2 MG/ML VIAL IVS PRN (14:15)
[2016-12-26] MEDS ORDERED: LORazepam 2 MG/ML VIAL IV PRN (14:15)
[2016-12-26] MEDS ORDERED: FUROSEMIDE 20 MG/2 ML VIAL IV PRN (14:15)
[2016-12-26] MEDS ORDERED: HEPARIN SODIUM - IV 10,000 UNITS/10 ML VIAL IV SCH (14:45)
--- NOTE | 2016-12-26 15:24 | PD.PROCEDR ---
Procedure Note Procedure DATE: 12/26/2016 PROCEDURE: Right femoral arterial catheter placement INDICATION: Hemodynamic access DETAILS OF PROCEDURE The patient was placed in supine position. The skin was cleansed with Chloraprep. Additional barrier precautions included large sterile drape, sterile gloves, sterile gown, face mask, and hat. 1% lidocaine was used for local anesthesia. Under direct ultrasound guidance and on the initial attempt, the artery was accessed with an introducer needle. The guide wire was advanced. Using Seldinger technique 20-gauge gauge arterial catheter was placed. The guide wire was removed. The catheter was connected to a transducer line and flushed with saline. The video monitor displayed normal arterial wave forms. The catheter was secured with 2-0 silk. A sterile dressing with antibiotic disc was applied. ESTIMATED BLOOD LOSS: minimal COMPLICATIONS: None Mick Escoto MD Dec 26, 2016 15:24
[2016-12-26] MEDS ORDERED: VANCOMYCIN INJ 1,500 MG in SODIUM CHLORID 0.9% 500 ML INJ 500 ML IV SCH (16:00)
[2016-12-26] MEDS: LORazepam 2 MG/ML VIAL IV PRN ×2 (16:15→16:30)
[2016-12-26] MEDS: MORPHINE SULFATE 8 MG/ML INJ IV PUSH PRN ×2 (16:30→17:45)
[2016-12-26 17:40] LABS: HEMOGLOBIN A1a 1.1 %; HEMOGLOBIN A1b 1.7 %; HEMOGLOBIN Ao 85.7 %; HEMOGLOBIN LA1C 1.7 %; HEMOGLOBIN P3 3.5 %
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
[2016-12-27] MEDS ORDERED: PHARMACY ORDERED LAB ONE (15:45)
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
== END 2016-12-26 16:41 | disposition expired | DRG 955 ==
LOC: NEPI 22:46 → EDBD 23:19 → MERGE 23:19 → NEDA 23:19 → N03A 12-16 05:56
PROVIDERS: ADMIT Surgery; ATTEND Surgery
PROC: 0BH17EZ Insertion of Endotracheal Airway into Trachea, Via Natural or Artificial Opening (ICD-10-PCS; 2016-12-15)
PROC: 0SS9XZZ Reposition Right Hip Joint, External Approach (ICD-10-PCS; 2016-12-15)
PROC: 5A1955Z Respiratory Ventilation, Greater than 96 Consecutive Hours (ICD-10-PCS; 2016-12-15 23:28)
PROC: 00C40ZZ Extirpation of Matter from Intracranial Subdural Space, Open Approach (ICD-10-PCS; principal; 2016-12-16)
PROC: 009600Z Drainage of Cerebral Ventricle with Drainage Device, Open Approach (ICD-10-PCS; 2016-12-16)
PROC: 00H032Z Insertion of Monitoring Device into Brain, Percutaneous Approach (ICD-10-PCS; 2016-12-16)
PROC: 0PSP34Z Reposition Right Metacarpal with Internal Fixation Device, Percutaneous Approach (ICD-10-PCS; 2016-12-16)
PROC: 0PSH04Z Reposition Right Radius with Internal Fixation Device, Open Approach (ICD-10-PCS; 2016-12-16)
PROC: 0PSK04Z Reposition Right Ulna with Internal Fixation Device, Open Approach (ICD-10-PCS; 2016-12-16)
PROC: 0PSP04Z Reposition Right Metacarpal with Internal Fixation Device, Open Approach (ICD-10-PCS; 2016-12-16)
PROC: 4A103BD Monitoring of Intracranial Pressure, Percutaneous Approach (ICD-10-PCS; 2016-12-16)
PROC: 03HY32Z Insertion of Monitoring Device into Upper Artery, Percutaneous Approach (ICD-10-PCS; 2016-12-16)
PROC: 02HV33Z Insertion of Infusion Device into Superior Vena Cava, Percutaneous Approach (ICD-10-PCS; 2016-12-16)
PROC: 30233N1 Transfusion of Nonautologous Red Blood Cells into Peripheral Vein, Percutaneous Approach (ICD-10-PCS; 2016-12-16)
PROC: 03HY32Z Insertion of Monitoring Device into Upper Artery, Percutaneous Approach (ICD-10-PCS; 2016-12-26)
DX: S52.351B Displaced comminuted fracture of shaft of radius, right arm, initial encounter for open fracture type I or II; S32.441A Displaced fracture of posterior column [ilioischial] of right acetabulum, initial encounter for closed fracture; J96.00 Acute respiratory failure, unspecified whether with hypoxia or hypercapnia; S72.001A Fracture of unspecified part of neck of right femur, initial encounter for closed fracture; J15.6 Pneumonia due to other Gram-negative bacteria; E87.0 Hyperosmolality and hypernatremia; S27.0XXA Traumatic pneumothorax, initial encounter; S52.251B Displaced comminuted fracture of shaft of ulna, right arm, initial encounter for open fracture type I or II; S62.336B Displaced fracture of neck of fifth metacarpal bone, right hand, initial encounter for open fracture; S22.31XA Fracture of one rib, right side, initial encounter for closed fracture; S73.014A Posterior dislocation of right hip, initial encounter; R40.2431 Glasgow coma scale score 3-8, in the field [EMT or ambulance]; V28.4XXA Motorcycle driver injured in noncollision transport accident in traffic accident, initial encounter; S62.304A Unspecified fracture of fourth metacarpal bone, right hand, initial encounter for closed fracture; Z66 Do not resuscitate; Z51.5 Encounter for palliative care; E87.6 Hypokalemia; E88.09 Other disorders of plasma-protein metabolism, not elsewhere classified; Y95 Nosocomial condition; K59.00 Constipation, unspecified; D64.9 Anemia, unspecified; I10 Essential (primary) hypertension; R40.20 Unspecified coma
CPT/HCPCS: 27250; 31500; 36430; 36556; 36620; 70450; 71010; 71260; 72125; 72170; 73090; 73120; 73501; 73560; 74177; 76000; 76937; 80048; 80053; 80202; 80307; 81001; 82150; 82248; 82435; 82550; 82565; 82805; 82947; 82977; 83036; 83690; 83735; 83930; 84100; 84132; 84295; 84520; 85007; 85014; 85018; 85025; 85027; 85610; 85730; 86850; 86900; 86901; 86920; 87040; 87070; 87077; 87086; 87184; 87185; 87186; 87205; 87641; 90471; 90715; 93005; 94002; 94003; 94640; 94664; 94770; 99291; C1713; C9113; G0390; J0131; J0171; J0360; J0461; J0690; J0692; J0696; J1120; J1580; J1644; J1940; J1953; J2060; J2250; J2270; J2370; J2997; J3010; J3370; J3475; J3480; J7040; J7050; J7120; L0150; L0172; L1830; P9016; Q9967